=== PATIENT | female | born 1975 | race Caucasian/White ===

== ENCOUNTER → 2017-10-27 13:02 | Outpatient (CLI) | payer OTHER, MEDICAID, SELFPAY ==
[2017-10-27 13:27] LABS: Specimen Label KIT TEST
[2017-10-27 13:59] LABS: Appearance Urine UA CLEAR; Bilirubin Urine UA NEGATIVE (NEGATIVE); Color Urine UA YELLOW; Glucose Urine UA NEGATIVE (Normal); Ketones Urine UA TRACE (NEGATIVE); Leukocyte Esterase Urine UA NEGATIVE (NEGATIVE); Nitrite Urine UA Negative (Negative); Occult Blood Urine UA NEGATIVE (Negative); Protein Urine UA NEGATIVE (Negative); Specific Gravity Urine UA 1.025 (1.000-1.035); Urobilinogen Urine UA 0.2 E.U./dL (0.2); pH Urine UA 6.5 (4.5-8.0)
[2017-10-27 14:08] LABS: Add Manual Diff / Slide Review NO; Basophils Percent Auto 0.5 % (0-2); Eosinophils Percent Auto 1.6 % (2-4); Hemoglobin 12.4 g/dL (12.0-16.0); Mean Corpuscular HGB Conc 34.5 % (30-36); Mean Corpuscular Hemoglobin 30.4 PG (26-34); Mean Corpuscular Volume 88.2 fL (80-100); Monocytes Percent Auto 4.2 % (3-14); Neutrophils Absolute Auto 5000 /uL (3000-5900); Neutrophils Percent Auto 68.7 % (50-75); Platelet Count 206 X10^3/uL (150-400); Red Blood Cell Count 4.09 X10^6/uL (4.0-5.2); Red Cell Distribution Width 13.4 % (11.6-14.8); White Blood Cell Count 7.3 X10^3/uL (4.5-11.0)
[2017-10-27 14:34] LABS: Glucose 89 mg/dL (70-100)
[2017-10-27 14:36] LABS: Hemoglobin A1C% w Est Avg Glu 5.1 % (4.0-6.0)
[2017-10-27 15:50] LABS: Hepatitis B Surface Antigen NEGATIVE s/c (NEGATIVE)
[2017-10-27 16:05] LABS: HIV 1 and 2 Antibody NEGATIVE (NEGATIVE); Hep C Virus Ab w/Reflex Quant NEGATIVE s/c (NEGATIVE)
[2017-10-29 14:02] LABS: HSV 2 IGG AB 2.07 index (< 0.90)
[2017-11-03 12:25] LABS: Rapid Plasma Reagin NON-REACTIVE
== END ==
PROVIDERS: PCP Family Medicine
DX: O09.40 Supervision of pregnancy with grand multiparity, unspecified trimester (principal); Z34.81 Encounter for supervision of other normal pregnancy, first trimester; Z3A.11 11 weeks gestation of pregnancy
CPT/HCPCS: 36415; 80055; 81003; 82947; 83036; 86695; 86696; 86703; 86787; 86803; 86850; 86900; 86901; 87086

== ENCOUNTER 2018-01-10 17:14 | Emergency (ER) | payer OTHER, MEDICAID, SELFPAY ==
[2018-01-10 17:37] VITALS: BP 119/44; PULSE 79; RESP 16; TEMP 36.6; O2SAT 100
--- NOTE | 2018-01-10 18:00 | ED_ITS ---
HPI - Extremity Injury (Lower) <ALEJANDRO Wallis - Last Filed: 01/10/18 21:48> General Chief Complaint: Extremity Injury, Lower Stated Complaint: LT LEG POSSIBLE CLOT Time Seen by Provider: 01/10/18 17:46 Source: patient Mode of arrival: ambulatory Limitations: no limitations History of Present Illness HPI Narrative: 42-year-old healthy female that is a nonsmoker that is currently approximately 20 weeks . She is 8 para 7. She states she has pain to her left calf area. She was sent here by her OBGYN to rule out a blood clot. She denies any chest pain or shortness of breath. No erythema or swelling to the left lower leg. She has had the pain there to the left calf area over the past couple of days. She denies any trauma to the area. She denies having a history of having blood clots. She denies any other concerns Related Data Home Medications Medication Instructions Recorded Confirmed VIT#96/FERROUS FUM/FA 1 tab PO QDAY #0 08/23/12 01/10/18 ( Vitamin) Allergies Allergy/AdvReac Type Severity Reaction Status Date / Time No Known Drug Allergies Allergy Verified 01/10/18 17:47 Review of Systems <ALEJANDRO Wallis - Last Filed: 01/10/18 21:48> Constitutional Denies chills, Denies fever(s), Denies lethargy and Denies weakness Eyes Denies change in vision, Denies eye discharge, Denies irritation and Denies loss of vision ENT Ears, Nose, Mouth, and Throat: Denies change in voice, Denies neck pain and Denies sore throat Cardiovascular Denies chest pain, Denies irregular heart rhythm, Denies lightheadedness, Denies palpitations, Denies dyspnea, Denies dyspnea on exertion and Denies orthopnea Respiratory Denies cough, Denies dyspnea, Denies dyspnea on exertion and Denies wheezing Gastrointestinal Gastrointestinal: Denies abdominal pain, Denies change in bowel habits, Denies diarrhea, Denies nausea and Denies vomiting Genitourinary Denies hematuria, Denies flank pain, Denies urinary incontinence and Denies urinary urgency Musculoskeletal Denies neck pain Comments: Left calf pain Integumentary/Breasts Denies pruritus, Denies erythema, Denies rash and Denies wounds Neurologic Denies confusion, Denies loss of vision and Denies weakness Psychiatric Denies anxiety, Denies confusion, Denies depression, Denies homicidal ideation and Denies suicidal ideation Endocrine Denies palpitations Hematologic/Lymphatic Denies easy bruising Allergic/Immunologic Denies wheezing Exam <ALEJANDRO Wallis - Last Filed: 01/10/18 21:48> Initial Vital Signs Initial Vital Signs: Vital Signs Temperature 97.8 F 01/10/18 17:37 Pulse Rate 79 01/10/18 17:37 Respiratory Rate 16 01/10/18 17:37 Blood Pressure 119/44 L 01/10/18 17:37 Pulse Oximetry 100 01/10/18 17:37 Const General: cooperative and well developed Nutritional Appearance: well nourished Orientation: alert, awake, oriented x3 and not confused HENMT Mouth: oral mucosae normal and moist mucous membranes Eyes Conjunctivae: conjunctivae normal Sclera: sclerae normal Pupils: PERRL EOM: EOM intact bilaterally Resp Effort & Inspection: normal respiratory effort, able to speak in complete sentences, no respiratory distress and no use of accessory muscles Auscultation: clear to auscultation bilaterally, no rales, no rhonchi and no wheezes Cardio Rate: regular rate Rhythm: regular rhythm Heart Sounds: no click, no gallops, no murmurs and no rubs Pulses: normal peripheral pulses GI Inspection: non-distended Palpation: soft, no hepatosplenomegaly, No guarding, No pulsatile mass and No tender Auscultation: normal bowel sounds Skin General: no rashes or lesions noted, No jaundice and No petechiae Neuro General: alert, oriented x3, gait normal and no focal motor deficits Speech: speech normal Extrem Other: Tenderness on palpation to the posterior left calf. No erythema. No increased temperature. No swelling. Homans sign is negative. No signs of trauma. No deformities. No ecchymosis. Distal sensation is intact. Distal range of motion is intact. Distal pulses are intact. <Jimi Young DO - Last Filed: 01/10/18 23:05> Initial Vital Signs Initial Vital Signs: Vital Signs Temperature 97.8 F 01/10/18 17:37 Pulse Rate 79 01/10/18 17:37 Respiratory Rate 16 01/10/18 17:37 Blood Pressure 119/44 L 01/10/18 17:37 Pulse Oximetry 100 01/10/18 17:37 Course <ALEJANDRO Wallis - Last Filed: 01/10/18 21:48> Orders Ordered: ED Orders 01/10/18 18:05 US periph venous low extrem lt Stat Vital Signs - 8 hr 01/10/18 17:37 Temperature 97.8 F Pulse Rate 79 Respiratory Rate 16 Blood Pressure 119/44 L Pulse Oximetry 100 <Jimi Young DO - Last Filed: 01/10/18 23:05> Orders Ordered: ED Orders 01/10/18 18:05 US periph venous low extrem lt Stat Vital Signs - 8 hr 01/10/18 17:37 Temperature 97.8 F Pulse Rate 79 Respiratory Rate 16 Blood Pressure 119/44 L Pulse Oximetry 100 MDM - Extremity Injury (Lower) <ALEJANDRO Wallis - Last Filed: 01/10/18 21:48> Lab Data Urine Dip Bedside Urine Glucose Negative Bedside Urine Bilirubin - Negative Bedside Urine Ketone - Negative Bedside Urine Occult Blood - Negative Bedside Urine Protein - Negative Bedside Urine Urobilinogen - Negative Bedside Urine Nitrite - Negative Bedside Urine Leukocytes - Negative Esterase Imaging Data Venous US: Radiologist's impression: [place] [address] Ultrasound Report Signed Patient: Darleen Almanza JMR#: [id number] : 1975Acct:[id number] Age/Sex: 42 / FDate of Service: 01/10/18 Loc: ED Accession Number: [id number] Procedure: US periph venous low extrem lt Ordering Provider: Aren Fields PROCEDURE: US PERIPH VENOUS LOW EXTREM LT INDICATIONS: CALF PAIN TECHNIQUE: Real-time imaging, as well as color and pulse Doppler interrogation, were performed of the lower extremity deep veins from the inguinal ligament to the popliteal fossa. COMPARISON: None. FINDINGS: The deep veins are normally compressible, and free of intraluminal thrombus. Color and pulse Doppler demonstrate normal phasic intraluminal flow. There is normal augmentation response to distal compression maneuver. IMPRESSION: No deep vein thrombosis of the left lower extremity. Dictated by: Bindu Garcia M.D. on 01/10/2018 at 19:19 Approved by: Bindu Garcia M.D. on 01/10/2018 at 19:19 MDM Narrative Medical decision making narrative: Ultrasound of the left lower extremity was obtained was negative for any blood clots. Urinalysis was obtained was negative for urinary tract infection. heart tones was obtained and was normal at 146. Sinus symptoms presents as a muscle strain to the left calf area. [id number] Tylenol as needed for any discomfort. Gentle range of motion and stretching to the left calf over the next few days. Rest area. Follow up with primary care provider. For any worsening symptoms return to the emergency room. <Jimi Young DO - Last Filed: 01/10/18 23:05> Lab Data Urine Dip Bedside Urine Glucose Negative Bedside Urine Bilirubin - Negative Bedside Urine Ketone - Negative Bedside Urine Occult Blood - Negative Bedside Urine Protein - Negative Bedside Urine Urobilinogen - Negative Bedside Urine Nitrite - Negative Bedside Urine Leukocytes - Negative Esterase Discharge Plan Departure Patient Disposition: Home Clinical Impression: Strain of calf muscle Discharge Date/Time: 01/10/18 19:20 Interventions: ED Discharge Assessment Last Done: 01/10/18 19:20 Instructions: DI for Calf Muscle Strain Activity Restrictions/Additional Instructions: Ultrasound left lower extremity was obtained was negative for any blood clot. Urinalysis is negative for urinary tract infection. heart tones was normal at 146. Signs and symptoms presents as a strain into the muscles of the calf area. Use [id number] Tylenol as needed for any discomfort. Rest area. Gentle range of motion and stretching to the calf area to help keep muscles loose. For any worsening symptoms return to the emergency room. Follow up with primary care provider. Prescriptions: No Action VIT#96/FERROUS FUM/FA ( Vitamin) 1 tab PO QDAY Qty: 0 RF: 0 Referrals: Darius Guaman MD [Primary Care Provider] - <Jimi Young, - Last Filed: 01/10/18 23:05> Cosign ED Attending Cosignature Attestation: I was immediately available in the department for consultation. Documentation has been reviewed. I agree with assessment and plan.
--- NOTE | 2018-01-10 18:05 | DI.US.S_ITS ---
PROCEDURE: US PERIPH VENOUS LOW EXTREM LT INDICATIONS: CALF PAIN TECHNIQUE: Real-time imaging, as well as color and pulse Doppler interrogation, were performed of the lower extremity deep veins from the inguinal ligament to the popliteal fossa. COMPARISON: None. FINDINGS: The deep veins are normally compressible, and free of intraluminal thrombus. Color and pulse Doppler demonstrate normal phasic intraluminal flow. There is normal augmentation response to distal compression maneuver. IMPRESSION: No deep vein thrombosis of the left lower extremity. Dictated by: Bindu Garcia M.D. on 01/10/2018 at 19:19 Approved by: Bindu Garcia M.D. on 01/10/2018 at 19:19
== END 2018-01-10 19:20 | disposition home or self-care (01) ==
PROVIDERS: Emergency Provider Nurse Practitioner Family; Family Provider Family Medicine; PCP Family Medicine; Referring Provider Obstetrics & Gynecology
DX: S86.812A Strain of other muscle(s) and tendon(s) at lower leg level, left leg, initial encounter (principal)
CPT/HCPCS: 81003; 93971; 99282; 99283

== ENCOUNTER → 2018-01-27 07:49 | Outpatient (CLI) | payer OTHER, MEDICAID, SELFPAY ==
[2018-01-27 10:20] LABS: Hematocrit 35.9 % (36-46)
[2018-01-27 10:54] LABS: GTT (PREG) 1 Hour PP 50gm Dose 78 mg/dL (76-139)
== END ==
PROVIDERS: Family Provider Family Medicine; PCP Family Medicine
DX: Z34.82 Encounter for supervision of other normal pregnancy, second trimester (principal); Z3A.25 25 weeks gestation of pregnancy
CPT/HCPCS: 36415; 82950; 85014; 85018

== ENCOUNTER → 2018-04-06 12:05 | Outpatient (CLI) | payer OTHER, MEDICAID, SELFPAY ==
[2018-04-07 19:16] LABS: Strep Grp B PCR NEG for Grp B Strep
== END ==
PROVIDERS: Family Provider Family Medicine; PCP Family Medicine
DX: Z34.83 Encounter for supervision of other normal pregnancy, third trimester (principal)
CPT/HCPCS: 87653

== ENCOUNTER 2018-05-04 07:00 | Inpatient (IN) | payer OTHER, MEDICAID, SELFPAY ==
[2018-05-04] MEDS: LACTATED RINGERS 1,000 ML 100 ML IV (07:45)
[2018-05-04] MEDS: OXYTOCIN PREMIX 30 UNIT/500 ML PLAST..BAG IV (08:05)
[2018-05-04 08:11] LABS: Add Manual Diff / Slide Review NO; Basophils Absolute Auto 0 /uL (0-100); Basophils Percent Auto 0.6 % (0-2); Eosinophils Absolute Auto 200 /uL (0-450); Eosinophils Percent Auto 1.9 % (2-4); Hematocrit 36.9 % (36-46); Hemoglobin 12.5 g/dL (12.0-16.0); Lymphocytes Absolute Auto 2000 /uL (1100-4500); Lymphocytes Percent Auto 24.1 % (25-40); Mean Corpuscular HGB Conc 33.9 % (30-36); Mean Corpuscular Hemoglobin 30.8 PG (26-34); Monocytes Absolute Auto 500 /uL (0-900); Monocytes Percent Auto 5.5 % (3-14); Neutrophils Absolute Auto 5600 /uL (1500-7000); Neutrophils Percent Auto 67.9 % (50-75); Platelet Count 147 X10^3/uL (150-400); Red Blood Cell Count 4.06 X10^6/uL (4.0-5.2); Red Cell Distribution Width 13.4 % (11.6-14.8); White Blood Cell Count 8.2 X10^3/uL (4.5-11.0)
--- NOTE | 2018-05-04 09:09 | PM.OBHP.1 ---
OB HPI Date/Time Date of admission: 05/04/18 Date Patient Seen: 05/04/18 Time Patient Seen: 09:10 History of Present Condition Chief complaint: OBS : 7 Para: 5 Estimated Date of Delivery: 05/01/18 Narrative: Darleen Almanza is a 42 year old female seven para five who is at term with an uneventful . Patient is admitted for elective induction at 40 weeks three days. The patient's course 10. Patient is admitted for extreme maternal discomfort Indications Indication for induction OB: post dates History of Present care: good care and pounds weight gain (32 lb) Dating criteria: LMP confirmed by 1st trimester US Ultrasounds: normal 1st trimester US, normal mid trimester US and other (3rd trimester) Abnormal ultrasound findings: None Obstetrical complications: none Medical complications: none Preadmission Labs Blood type: B (+) positive -: Antibody screen: negative, Cystic fibrosis screen: unknown, GBS status: negative, HBsAG: negative, HIV: negative, HSV 1: negative, HSV 2: negative and RPR/VDLR: negative -: Chlamydia screen: detected (Negative) and Gonorrhea screen: detected (Negative) -: Rubella: immune and Varicella: immune HCT: 35.9 HCAB: negative PAP: Normal Sequential screen: Normal 1 hr GTT: 78 Prior (ies) History: 1 child with Chiari malformation Evaluation Evaluation Variability: Average (6-10) monitor accelerations: Present monitor decelerations: Absent Category of Tracing: I Cervical dilation (cm): 4 Cervical effacement (%): 90 station: 0 Laboratory results: Laboratory Tests 05/04/18 07:45 WBC 8.2 RBC 4.06 Hgb 12.5 Hct 36.9 MCV 91.0 MCH 30.8 MCHC 33.9 RDW 13.4 Plt Count 147 L Neut % (Auto) 67.9 Lymph % (Auto) 24.1 L Barnes % (Auto) 5.5 Eos % (Auto) 1.9 L Baso % (Auto) 0.6 Neut # (Auto) 5600 Lymph # (Auto) 2000 Barnes # (Auto) 500 Eos # (Auto) 200 Baso # (Auto) 0 PFSH Surgical History Status post dilation and curettage (Resolved 06/30/15) Social History Smoking Status: Never smoker Social History Smoking Status: Never smoker Meds Home Medications Medication Instructions Recorded Confirmed Type VIT#96/FERROUS FUM/FA 1 tab PO QDAY #0 08/23/12 01/10/18 History ( Vitamin) Allergies Allergy/AdvReac Type Severity Reaction Status Date / Time No Known Drug Allergies Allergy Verified 01/10/18 17:47 Review of Systems Review of Systems All systems reviewed & are unremarkable except as noted in HPI and below Exam Const General: cooperative and healthy appearing HENMT Head: normal to inspection Ears: hearing grossly normal bilaterally Nose: external nose normal Face and sinus: normal facial exam Mouth: oral mucosae normal, lip normal, tongue normal and moist mucous membranes Teeth and gingiva: dentition normal Throat: posterior oropharynx normal Eyes General: appearance normal, both eyes and all related structures Neck Neck: normal visual inspection and full ROM Chest Chest: normal inspection of the chest and normal palpation of entire chest wall Breast inspection: normal inspection of the breasts and normal inspection of the axillae Breast Palpation: normal palpation of the breasts and normal palpation of the axillae Resp Effort & Inspection: normal respiratory effort Auscultation: clear to auscultation bilaterally Cardio Palpation: normal PMI Rate: regular rate Rhythm: regular rhythm Heart Sounds: S1 normal and S2 normal GI Inspection: normal to inspection Palpation: soft and no hepatosplenomegaly Percussion: normal to percussion Auscultation: normal bowel sounds Uterus Location (Fundal Height): 38 Presentation: vertex Estimated Weight (lbs): 8 Amniotic Fluid: clear Back/Spine/Pelvis Thoracic/Lumbar Spine: thoracic and lumbar spine normal to inspection Skin General: no rashes or lesions noted Neuro General: alert, oriented x3, tone normal and moves all extremities Cognition: normal cognition Speech: speech normal Gait: normal gait Motor: muscle tone normal throughout Sensory Exam: no sensory deficits noted Extrem General: normal to inspection and normal exam except as noted Psych Appearance: grossly normal and well kempt Mental Status: mental status grossly normal Speech and Movement: speech and movement normal Objective Labs Result Diagrams: 05/04/18 07:45 Labs: Laboratory Results - last 24 hr 05/04/18 07:45 WBC 8.2 RBC 4.06 Hgb 12.5 Hct 36.9 MCV 91.0 MCH 30.8 MCHC 33.9 RDW 13.4 Plt Count 147 L Neut % (Auto) 67.9 Lymph % (Auto) 24.1 L Barnes % (Auto) 5.5 Eos % (Auto) 1.9 L Baso % (Auto) 0.6 Neut # (Auto) 5600 Lymph # (Auto) 2000 Barnes # (Auto) 500 Eos # (Auto) 200 Baso # (Auto) 0
--- NOTE | 2018-05-04 11:14 | PM.OBPNLAB ---
Date/Time Date Patient Seen: 05/04/18 Time Patient Seen: 11:14 Pain Control Pain control: tolerating well Comments: Epidural Pelvic Exam Dilation (cm): 9 Effacement (%): 100 station: +2 Contractions Contractions on admission: regular Monitor mode: External Pitocin rate (mU/min): 3 Contraction frequency (min): 3 Contraction pattern: Regular Contraction phase: Resting Contraction intensity: Strong/Firm Status status: Category ll Heart Rate Baseline: 130 Monitor Accelerations: Present Monitor Decelerations: Variable Assessment and Plan Assessment: active labor Plan: continuous present management
--- NOTE | 2018-05-04 11:38 | P.PCNOB_ITS ---
Delivery date: 05/04/18 Intrapartal events: None Induction method: per pitocin protocol Delivery augmentation: rupture of membranes Delivery monitor: external FHT and external uterine Route of delivery: Episiotomy description: None L&D Laceration Description: None Estimated blood loss (mL): 300 Anesthesia type: Epidural Complications: None Narrative: Patient is a 42-year-old eight para six Plan for aftercare: Patient is a 32-year-old eight para six who was admitted for induction of labor. Pitocin was begun and membranes ruptured. Epidural was placed. Patient made rapid progress to complete and delivered spontaneously a live born male with scores of nine at 1 min nine at 5 min in good condition. There was no episiotomy. There was no tear. There w ere no cervical or vaginal lacerations. The estimated blood loss was 300.
[2018-05-04] MEDS: METHYLERGONOVINE 0.2 MG TABLET PO ×2 (13:38→21:13)
[2018-05-04 17:46] VITALS: BP 124/80
[2018-05-04 21:13] VITALS: TEMP 37.1
[2018-05-04] MEDS: IBUPROFEN 600 MG TABLET PO (21:13)
[2018-05-05] MEDS: IBUPROFEN 600 MG TABLET PO (06:02)
[2018-05-05] MEDS: METHYLERGONOVINE 0.2 MG TABLET PO (06:02)
[2018-05-05 06:53] LABS: Hemoglobin 13.5 g/dL (12.0-16.0)
--- NOTE | 2018-05-05 10:29 | P.DS_ITS ---
Discharge Providers Date of admission: 05/04/18 07:00 Discharge Date: 05/05/18 Primary care physician: Darius Guaman MD Consults: 05/04/18 12:54 Consult to Overnight Stocker Routine Comment: Discharge provider: Chace Coronado MD Summary Date Patient Seen: 05/05/18 Time Patient Seen: 10:25 Procedures: Spontaneous vaginal delivery Hospital Course: Patient is a 42-year-old eight para six who was admitted because of a very favorable cervix and maternal discomfort. Pitocin was begun and the patient had a rapid labor and spontaneous vaginal delivery of a live-born male infant with scores of nine at 1 min and nine at 5 min in good condition. There were no cervical vaginal or perineal tears. Estimated blood loss was 200 cc. Post delivery the patient did well. She remained afebrile with stable vital signs and was progressively elevated ambulated. She was discharged home for follow-up in four week Peripartum Data Infant Delivery Method: Natural Vaginal Laceration description: None complications: none Status at Discharge Cognitive/behavioral status at discharge: oriented Functional status at discharge: independent ambulation Overall status at discharge: patient is back to baseline Time Spent with Patient Total time spent providing and/or coordinating discharge services: Objective Labs Result Diagrams: 05/05/18 06:30 Labs: Laboratory Results - last 24 hr 05/05/18 06:30 Hgb 13.5 Hct 40.0 Exam Vital Signs (past 8 hours): Fundus U minus two Lochia scant Perineum looks fine Discharge Plan Discharge Plan Patient Disposition: Home Discharge Med Rec/Prescriptions Prescriptions: New Dermoplast (with menthol) 20-0.5 % Aerosol 1 spray topical Q1HR PRN (Reason: perineal pain) Qty: 1 RF: 0 oxycodone-acetaminophen 5-325 mg Tablet 1 tab PO Q4HR Qty: 20 RF: 0 ibuprofen 600 mg Tablet 600 mg PO Q6HR PRN (Reason: Pain, Mild (1-3)) Qty: 20 RF: 0 docusate sodium 250 mg Capsule 250 mg PO DAILY Qty: 20 RF: 0 Pic-I-Zvdlcy Cream 1 applic topical PRN PRN (Reason: Tenderness) Qty: 1 RF: 0 Prenatabs Rx 29 mg iron- 1 mg Tablet 1 tab PO DAILY Qty: 60 RF: 0 Continued VIT#96/FERROUS FUM/FA ( Vitamin) 1 tab PO QDAY Qty: 0 RF: 0 Follow up/Referrals: Darius Guaman MD [Primary Care Provider] - Chace Coronado MD [Physician] - Provider Discharge Instructions Diet: Diet as Tolerated Activity: Up ad leslie Skin/Wound/Dressing Care Report to your healthcare provider any signs of infection, such as:: chills, fever, increased pain, unusual drainage and unusual redness Discharge Data Primary Care Provider: Darius Guaman Attending Provider: Chace Coronado Admit Date/Time: 05/04/18 07:00
[2018-05-05 12:10] VITALS: BP 120/70; PULSE 81; RESP 16; TEMP 36.8
== END 2018-05-05 12:45 | disposition home or self-care (01) | DRG 560 ==
PROVIDERS: Family Provider Family Medicine; PCP Family Medicine
DX: O48.0 Post-term pregnancy (principal); O26.813 Pregnancy related exhaustion and fatigue, third trimester; Z3A.40 40 weeks gestation of pregnancy; Z37.0 Single live birth
CPT/HCPCS: 01967; 36415; 59050; 59409; 85014; 85018; 85025; 86850; 86900; 86901; G0379; J2590

== ENCOUNTER → 2018-06-22 09:05 | Outpatient (CLI) | payer OTHER, MEDICAID, SELFPAY ==
[2018-06-22 09:26] LABS: Appearance Urine UA SL CLOUDY; Bilirubin Urine UA NEGATIVE (NEGATIVE); Color Urine UA YELLOW; Glucose Urine UA NEGATIVE (Negative); Ketones Urine UA NEGATIVE (NEGATIVE); Leukocyte Esterase Urine UA 3+ (NEGATIVE); Nitrite Urine UA NEGATIVE (Negative); Occult Blood Urine UA TRACE-LYSED (Negative); Protein Urine UA NEGATIVE (Negative); Specific Gravity Urine UA 1.015 (1.000-1.035); Urobilinogen Urine UA 0.2 E.U./dL (0.2)
[2018-06-22 10:18] LABS: Bacteria Urine Moderate (10-30); Culture Indicated Urine Specimen Cultured; RBC Urine 1-5/HPF (0-5/HPF); Squamous Epithelial Cell Urine 1-5 /HPF (0-5/HPF); WBC Urine 10-30/HPF (0-5/HPF)
== END ==
PROVIDERS: PCP Family Medicine; Visit Provider Obstetrics & Gynecology
DX: R30.0 Dysuria (principal)
CPT/HCPCS: 81001; 87086

== ENCOUNTER → 2018-07-31 17:02 | Outpatient (CLI) | payer OTHER, MEDICAID, SELFPAY ==
[2018-07-31 17:21] LABS: Appearance Urine UA CLOUDY; Bilirubin Urine UA NEGATIVE (NEGATIVE); Color Urine UA YELLOW; Glucose Urine UA NEGATIVE (Negative); Ketones Urine UA NEGATIVE (NEGATIVE); Leukocyte Esterase Urine UA 3+ (NEGATIVE); Nitrite Urine UA NEGATIVE (Negative); Occult Blood Urine UA TRACE-LYSED (Negative); Protein Urine UA NEGATIVE (Negative); Urobilinogen Urine UA 0.2 E.U./dL (0.2); pH Urine UA 5.5 (4.5-8.0)
[2018-07-31 17:36] LABS: Amorphous Sediment Urine 1+; Bacteria Urine Few (2-10); Culture Indicated Urine Specimen Cultured; Mucus Urine 1+ (Negative); RBC Urine 0-1/HPF (0-5/HPF); Squamous Epithelial Cell Urine 1-5 /HPF (0-5/HPF); WBC Urine >100/HPF (0-5/HPF)
== END ==
PROVIDERS: PCP Family Medicine
DX: R30.0 Dysuria (principal); R35.0 Frequency of micturition
CPT/HCPCS: 81001; 87077; 87086; 87186

== ENCOUNTER → 2018-10-31 11:47 | Outpatient (CLI) | payer OTHER, MEDICAID, SELFPAY ==
--- NOTE | 2018-10-31 | DI.US.S_ITS ---
PROCEDURE: US THYROID INDICATIONS: THYROIDITIS TECHNIQUE: Real-time scanning was performed of the thyroid gland, with image documentation. COMPARISON: None. FINDINGS: Right: Thyroid lobe measures 4.5 x 1.9 x 1.8 cm, and is homogeneous in echotexture. Left: Thyroid lobe measures 4.4 x 2.0 x 1.6 cm, and is homogenous in echotexture. Isthmus: 6 mm thick. Nodule number: 1 Location: Left aspect of the isthmus Size: 1.8 x 0.5 x 0.9 cm. Composition: Solid Echogenicity: Hypoechoic Shape: wider than tall. Margins: Smooth Echogenic foci: None Total points: 4 ACR TI-RADS category: Moderately suspicious Moderately suspicious. Multiple nodules posterior to the right lobe of the thyroid presumably enlarged parathyroid measuring 2.7 x 0.8 x 1.0 cm (superior) and 1.0 x 0.5 x 0.6 cm (inferior) IMPRESSION: Solitary nodule in the left aspect of the isthmus. Recommend further assessment with ultrasound guided FNA. Enlarged multiple right parathyroid glands as above. Recommend clinical/laboratory correlation. Diffusely enlarged, heterogeneous thyroid ACR TI-RADS definitions and recommendations: TI-RADS 1 (benign): 0 points. FNA not needed. TI-RADS 2 (not suspicious): 2 points. FNA not needed. TI-RADS 3 (mildly suspicious): 3 points. * FNA if 2.5 cm or larger, follow up if 1.5 cm or larger (at 1, 3, and 5 years). TI-RADS 4 (moderately suspicious): 4-6 points. * FNA if 1.5 cm or larger, follow up if 1 cm or larger (at 1, 2, 3, and 5 years). TI-RADS 5 (highly suspicious): 7 points or more. * FNA if 1 cm or larger, follow up if 0.5 cm or larger (every year for 5 years). Dictated by: Ab Marinelli M.D. on 10/31/2018 at 15:36 Approved by: Ab Marinelli M.D. on 10/31/2018 at 15:44
== END ==
PROVIDERS: PCP Family Medicine; Visit Provider Family Medicine
DX: E06.9 Thyroiditis, unspecified (principal); E04.2 Nontoxic multinodular goiter
CPT/HCPCS: 76536

== ENCOUNTER → 2018-11-23 09:34 | Outpatient (CLI) | payer OTHER, MEDICAID, SELFPAY ==
--- NOTE | 2018-11-23 | DI.US.S_ITS ---
PROCEDURE: US FINE NEEDLE ASPIRATION INDICATIONS: ISTHMUS NODULE TECHNIQUE: The indications, alternatives, benefits, risks, and complications of the procedure were explained to the patient. Written informed consent was obtained and placed in the chart. The thyroid region was examined sonographically and a site was chosen for ultrasound guided percutaneous sampling. The skin was prepared and draped in the usual fashion, and anesthetized with 1% lidocaine infiltrated from the skin down to the thyroid gland. Multiple passes were then performed, with contents emptied into an appropriate pathology specimen container. A bandage was applied to the area of access at completion of the study. COMPARISON: None. FINDINGS: Location(s) of lesion(s) sampled: Isthmus Saxis: 25 gauge hypodermic needles. Number of passes: 7 Medications: 1% lidocaine for local anaesthesia. Complications: None. IMPRESSION: Successful ultrasound-guided thyroid nodule fine needle aspiration, with cytology results pending. Please see chart below for management recommendations based on cytology results. Kirby System ReportingRecommendationsNon-diagnostic* Repeat US-guided FNA, with on-site cytology evaluation if possible. * Repeated non-diagnostic nodules without high suspicion US features: close observation vs surgical consult. * Consider surgery if nodule has high suspicion US features, grows >20% in 2 dimensions on followup, or patient has clinical risk factors for malignancy. Benign* If nodule has high suspicion US features: repeat US and FNA within 12 months. * If nodule has low to intermediate suspicion US features: repeat US at 12-24 months. If nodule grows (20% increase in at least 2 dimensions, with minimal increase of 2 mm or >50% change in volume), or development of new suspicious US features, then repeat FNA or continue followup. * If nodule has very low suspicion US features: followup US at >24 months. Atypia of undetermined significance, follicular lesion of undetermined significanceRepeat FNA, molecular testing, followup US, or surgical consult.Follicular neoplasm, suspicious for follicular neoplasmSurgical consult; also consider molecular testing. Suspicious for malignancySurgical consult.MalignantSurgical consult. Dictated by: Brooklyn Massey M.D. on 11/23/2018 at 14:55 Approved by: Brooklyn Massey M.D. on 11/23/2018 at 14:55
--- NOTE | 2018-11-23 | PATH_ITS ---
Note [facility] Accession Number: [id number] TESTS RESULT FLAG UNITS REF RANGE LAB Clinician Provided Cytology Information No. of containers..01 ThinPrep Vial No. of containers..10 Previously Prepared Cytology Slide LEFT THYROID ISTHMUS NODULE DIAGNOSIS: 02 LEFT THYROID ISTHMUS NODULE NEGATIVE FOR MALIGNANT CELLS. BETHESDA CATEGORY II - BENIGN. LYMPHOCYTES AND HURTHLE CELLS SUGGESTIVE OF JESÚS'S THYROIDITIS IN THE APPROPRIATE CLINICAL SETTING. Pathologist ICD10: 02 E06.3 01 LYMPHOCYTIC THYROIDITIS 02 Conner Almanza MD, PhD, Pathologist NPI- [id number] John Somers, Chief Drafter ([facility]) 01 30 CC, COLORLESS, CLEAR RECEIVED: 5 ALCOHOL FIXED AND 5 QUICK STAINED SLIDES WITH 1 RNA VIAL FOR FURTER TESTING. /VDU 11/24/2018 0646 Local FLAG LEGEND: L-Low Normal,H-High Normal,LL-Alert Low,HH-Alert High <-Panic Low,>-Panic High,A-Abnormal,AA-Critical Abnormal Performed at: 01 =Z [facility] [address], [place] [address] Ashutosh Hanson MD, 02 LMT [facility] [address] [place] [phone] Raquel Mascorro MD, Performed at: 01 [facility] [address], [place], [place] [id number] MD Ashutosh Hanson MD Phone: [phone]
== END ==
PROVIDERS: PCP Family Medicine; Visit Provider Family Medicine
DX: E04.1 Nontoxic single thyroid nodule (principal)
CPT/HCPCS: 10005

== ENCOUNTER → 2019-10-15 14:44 | Outpatient (CLI) | payer OTHER, MEDICAID, SELFPAY ==
[2019-10-16 20:04] LABS: COVID19 Sendout Not Detected (Not Detect)
== END ==
PROVIDERS: PCP Family Medicine; Visit Provider Physician Assistant
DX: Z11.59 Encounter for screening for other viral diseases (principal)
CPT/HCPCS: 87635

== ENCOUNTER 2019-10-18 12:17 | Day surgery (SDC) | payer OTHER, MEDICAID, SELFPAY ==
[2019-10-12 14:02] VITALS: BMI 22.1
[2019-10-18] VITALS (13 sets, daily range): BP systolic 93–152; BP diastolic 58–102; PULSE 54–79; RESP 12–20; TEMP 36.1–36.8; O2SAT 100; BMI 21.2
[2019-10-18] MEDS: LACTATED RINGERS 1,000 ML 100 ML IV ×2 (13:03→17:44)
[2019-10-18] MEDS: ACETAMINOPHEN 325 MG TABLET 975 MG PO (13:03)
--- NOTE | 2019-10-18 13:20 | SUR.OPER ---
Lithotomy on padded OR bed, head on pillow, arms secured on padded arm boards at <90 degrees abduction. Legs secured in padded yellow fins stirrups.
--- NOTE | 2019-10-18 13:25 | PM.PREOP ---
Pre-operative Note COVID-19 COVID-19 status: Negative Result date/Date tested (Pos, Neg/Pending): 10/15/19 Interval Note History & Physical reviewed/Exam performed by Physician: Yes Changes to H&P: No
[2019-10-18] MEDS: CEFAZOLIN 2 GM/100 ML FROZ.PIGGY IV (13:45)
[2019-10-18] MEDS: BUPIVACAINE 0.5% W/ EPI (PF) 30 ML VIAL INJ (14:09)
--- NOTE | 2019-10-18 15:44 | P.OP_ITS ---
Operative Date/Time/Diagnoses Date of procedure: 10/18/19 Time of procedure: 15:44 Pre-op diagnosis: Prolapse, sterilization Post-op diagnosis: same Procedure & Clinicians Procedure: Laparoscopic bilateral tubal ligation with anterior colporrhaphy, TVT exact retropubic suburethral sling, sacrospinous ligament fixation bilateral Same procedure as scheduled: Yes Indications: Prolapse and wish for sterilization Surgeon: Marla Bill Ui Application Developer: Gracie Salmeron Anesthesia Type: General Operative Notes Findings: Normal intra-abdominal contents on laparoscopy with normal tubes, ovaries, uterus. Prominent cystocele with hypermobile urethra and uterus prolapsed to 1 cm from the hymen Closure Type: primary Specimen(s): none sent Applied: catheter (Kwan) and other (Vaginal packing) Estimated Blood Loss (mL): 100 Blood products transfused: none Procedure in detail: Patient was brought to the operating room where she was placed in yellowfin stirrups and prepped and draped in the usual sterile fashion. A 20 point check system was reviewed prior to the beginning of the case. Pulsatile stockings were in place and functional throughout the case. Warming was in place. 2 g of Ancef were in prior to beginning of the case. A Kwan catheter was placed. A dilute solution of 1% lidocaine with epinephrine was injected over this cystocele. An incision was made over the cystocele and the incision dissected laterally. A pursestring suture was used to decrease the caliber of the cystocele with 2-0 Vicryl suture. Plicating sutures were made over the cystocele. A small amount of the vaginal excessive tissue was removed with scissors. The incision was closed with 2-0 Vicryl suture. 15 mL of half percent Marcaine with epinephrine were diluted with 70 mL of saline 10 cc was injected around the mid urethra. An incision was made over the mid urethra with a scalpel. The incision was extended laterally. A Kwan catheter was placed with a catheter guide in place. The suprapubic exit sites were marked with a marking pen. The needles attached to the sling were placed from the bottom up and left in place. The catheter was removed and 300 mL of saline were placed in the bladder and cystoscopy was performed. A 70?? scope followed by a 12?? scope were used to look at the bladder and the urethra. The trocar for the sling was found to have entered the bladder on the left side and was replaced. There is no damage to the bladder or urethra. The graft was brought up loosely under the mid urethra. With sharp pressure against the bladder there was some leakage of urine. The plastic sheath was removed. The graft was cut under the skin of the suprapubic sites. Skin was closed with Steri-Strips. The vaginal incision was closed with 2-0 vicryl suture. The area of the posterior wall of the vagina was injected with a dilute solution of 1% lidocaine with epinephrine. An incision was made with the scalpel. The dissection was undertaken laterally. Prolene suture with the Capio passer was placed through the uterosacral ligament on the right side and sutured to the underside of the cervix. A Prolene suture was placed on the left uterosacral ligament and sutured to the underside of the vaginal wall on the left. A finger was placed in the rectum to be sure there were no sutures placed through the rectal mucosa. The uterosacral sutures were tightened down and the vaginal incision was closed with 2-0 Vicryl suture. Vaginal packing was placed in the vagina and the Kwan left in place. Counts of instruments and sponges were correct. The patient went to recovery room in good condition. Complications: other (Trocar for TVT exact went through the bladder on the left was replaced) Post-operative Condition: stable Disposition: Acute Care Plan for aftercare: Will leave vaginal packing in place for 4-6 hours, Kwan catheter for 1 week, home when patient feels able.
[2019-10-18] MEDS: LACTATED RINGERS 1,000 ML 42 ML IV (15:46)
--- NOTE | 2019-10-18 15:49 | SUR.PHASEI ---
Received to PACU at 1531. Oral airway in place. No further airway assistance required. Report from circulating RN and Dr Ho. 1535 - Oral airway removed without difficulty.
--- NOTE | 2019-10-18 16:24 | SUR.PHASEII ---
Report called to YO Meek. Pt transferred to 218 in stable condition. Bedside handoff with YO Meek. Pt's called and notified of transfer.
[2019-10-18] MEDS: KETOROLAC 30 MG/ML VIAL IV (17:43)
--- NOTE | 2019-10-18 20:25 | P.DS_ITS ---
History of Present Illness History of Present Illness Date Patient Seen: 10/18/19 Time Patient Seen: 20:25 Date of Onset of Symptoms: 10/18/19 Chief complaint: *OPB* Narrative: Patient with prolapse of bladder and uterus with undesired fertility who underwent a laparoscopic bilateral tubal ligation anterior colporrhaphy, TVT exact retropubic suburethral sling, sacrospinous ligament fixation. Discharge Providers Provider Discharge Date: 10/18/19 Primary care physician: Darius Guaman MD Discharge provider: Marla Bill MD Summary Hospital Course Discharge Diagnosis: Sterilization, cystocele and uterine prolapse Hospital Course: Patient underwent a laparoscopic bilateral tubal ligation, anterior colporrhaphy, TVT exact retropubic suburethral sling with sacrospinous ligament fixation. Patient had a small renny in the bladder so will be sent home with a Isaac catheter for 1 week. Patient's packing was removed. She feels her pain is under good control with Toradol. She is not nauseated. She feels she is able to ambulate. Exam Vital Signs (past 8 hours): - 10/18/19 12:45 10/18/19 15:31 10/18/19 15:36 Temperature 97.4 F L 97.3 F L Pulse Rate 70 73 57 L Respiratory Rate 14 20 12 Blood Pressure 121/80 139/87 116/76 Pulse Oximetry 100 100 100 10/18/19 15:41 10/18/19 15:46 10/18/19 15:52 Temperature Pulse Rate 60 57 L 57 L Respiratory Rate 12 12 12 Blood Pressure 112/75 114/74 104/70 Pulse Oximetry 100 100 100 10/18/19 16:00 10/18/19 16:11 10/18/19 16:20 Temperature 97.2 F L 97.1 F L Pulse Rate 60 54 L 58 L Respiratory Rate 12 14 16 Blood Pressure 94/60 93/58 L 108/67 Pulse Oximetry 100 100 100 10/18/19 16:50 10/18/19 17:20 10/18/19 18:20 Temperature 97.7 F 98.3 F 97.0 F L Pulse Rate 55 L 56 L 60 Respiratory Rate 16 18 16 Blood Pressure 113/76 152/102 H 110/70 Pulse Oximetry 100 100 100 Oxygen Delivery Method Room Air Narrative Exam Narrative: Abdomen is soft, nontender. Suprapubic dressings are dry. Vaginal packing was removed and had minimal blood on it. Urine is clear. Extremities nontender. Discharge Assessment & Plan Assessment and Plan Assessment: Wish for sterilization, prolapse with cystocele and uterine prolapse status post laparoscopic tubal ligation with anterior colporrhaphy, TVT exact retropubic s uburethral sling and sacrospinous ligament fixation doing well. Patient with renny in the bladder who will require Isaac catheter for 1 week Plan of Treatment: Discharged home with Isaac catheter care and leg bag. Follow-up in 1 week. Discharge Plan Discharge Plan Patient Disposition: Home Discharge comment: pt will take aleve, tylenol, and has old pain meds if needed Discharge Med Rec/Prescriptions Prescriptions: Continued levothyroxine 50 mcg capsule 50 mcg PO DAILY RF: 0 Discontinued norethindrone (contraceptive) [Ortho Micronor] 0.35 mg tablet 0.35 mg PO DAILY Qty: 84 RF: 3 Follow up/Referrals: Marla Bill MD [Physician] - 1 Week (remove isaac and check post void residual) Discharge Orders: Discharge (Order); Ordered 10/18/19 Ordered By: Marla Bill Provider Discharge Instructions Diet: Regular Activity: nothing in vagina,lifting over 20 pounds, or getting up and down from floor for 6 weeks Catheter comment: teach isaac and leg bag care Skin/Wound/Dressing Care Report to your healthcare provider any signs of infection, such as:: chills, fever, increased pain and unusual drainage Dressing: may remove dressings tomorrow Discharge Data Primary Care Provider: Darius Guaman Attending Provider: Marla Bill
[2019-10-18] MEDS: IBUPROFEN 600 MG TABLET PO (22:26)
--- NOTE | 2019-10-18 23:03 | PC.NURSE ---
Pt discharged a few hours after admission to unit. Education provided on isaac home care and leg bag use. Pt verbalized understanding of all instructions. IV removed pt escorted off unit in stable condition with all personal belongings.
== END 2019-10-18 22:30 | disposition home or self-care (01) ==
LOC: OR 14:02 → AC 17:06
PROVIDERS: PCP Family Medicine; Referring Provider Specialist; Visit Provider Specialist
PROC: (CPT 57288; principal; 2019-10-18 13:30)
PROC: (CPT 58671; 2019-10-18 13:30)
DX: N36.41 Hypermobility of urethra (principal); N81.2 Incomplete uterovaginal prolapse; Z30.2 Encounter for sterilization; G47.30 Sleep apnea, unspecified
CPT/HCPCS: 57288; 58661; 57240; 57282; C1771; J0690; J1100; J1885; J2250; J2405; J2704; J3010

== ENCOUNTER → 2019-10-25 10:21 | Outpatient (CLI) | payer OTHER, MEDICAID, SELFPAY ==
[2019-10-18 18:01] VITALS: BMI 21.2
== END ==
PROVIDERS: PCP Family Medicine; Visit Provider Specialist
DX: R35.0 Frequency of micturition (principal)
CPT/HCPCS: 87077; 87086; 87186

== ENCOUNTER → 2020-01-02 17:35 | Outpatient (CLI) | payer OTHER, MEDICAID, SELFPAY ==
[2019-10-18 18:01] VITALS: BMI 21.2
--- NOTE | 2020-01-02 | DI.MG.S_ITS ---
BILATERAL DIGITAL SCREENING MAMMOGRAM 3D/2D WITH CAD: 01/02/2020 CLINICAL: Routine screening. Family history of breast cancer. Comparison is made to exams dated: 01/22/2011 mammogram, 01/20/2010 mammogram, and 01/13/2009 mammogram - [facility]. The tissue of both breasts is heterogeneously dense. This may lower the sensitivity of mammography. Current study was also evaluated with a Computer Aided Detection (CAD) system. There are grouped coarse calcifications in the right breast at 11 o'clock middle depth. These are more prominent and increased in number. No other significant masses, calcifications, or other findings are seen in either breast. IMPRESSION: INCOMPLETE: NEEDS ADDITIONAL IMAGING EVALUATION The grouped coarse calcifications in the right breast are indeterminate. Mediolateral, spot magnification, and additional views are recommended. This exam was interpreted at Station ID: [id number]. NOTE: For mammograms, a report in lay terms will be sent to the patient. Approximately 15% of breast malignancies will not be visualized mammographically. In the management of a palpable breast mass, a negative mammogram must not discourage biopsy of a clinically suspicious lesion. Electronically Signed By: Derek He M.D. aty/:01/03/2020 07:43:38 letter sent: Additional Imaging Needed ACR BI-RADS Category 0: Incomplete [id number]
== END ==
PROVIDERS: PCP Family Medicine; Referring Provider Family Medicine; Visit Provider Family Medicine
DX: Z12.31 Encounter for screening mammogram for malignant neoplasm of breast (principal); Z80.3 Family history of malignant neoplasm of breast
CPT/HCPCS: 77063; 77067

== ENCOUNTER → 2020-01-28 13:27 | Outpatient (CLI) | payer OTHER, MEDICAID, SELFPAY ==
[2019-10-18 18:01] VITALS: BMI 21.2
--- NOTE | 2020-01-28 | DI.MG.S_ITS ---
UNILATERAL RIGHT DIGITAL DIAGNOSTIC MAMMOGRAM 3D/2D WITH ADDITIONAL VIEWS: 01/28/2020 CLINICAL: Additional evaluation requested from prior study. Comparison is made to exams dated: 01/02/2020 mammogram, 01/22/2011 mammogram, and 01/20/2010 mammogram - [facility]. The tissue of right breast is heterogeneously dense. This may lower the sensitivity of mammography. There are diffuse round calcifications in the right breast at 11 o'clock middle depth. No other significant masses or calcifications are seen in the breast. IMPRESSION: PROBABLY BENIGN The diffuse round calcifications in the right breast are probably benign. A follow-up mammogram in 6 months is recommended. A follow-up mammogram in 6 months is recommended to demonstrate stability. This exam was interpreted at Station ID: [id number]. NOTE: For mammograms, a report in lay terms will be sent to the patient. Approximately 15% of breast malignancies will not be visualized mammographically. In the management of a palpable breast mass, a negative mammogram must not discourage biopsy of a clinically suspicious lesion. Electronically Signed By: Srikanth Sheikh acr/liliana:01/28/2020 14:04:14 letter sent: Followup Recommended ACR BI-RADS Category 3: Probably benign [id number]
== END ==
PROVIDERS: Family Provider Specialist; PCP Family Medicine; Referring Provider Family Medicine; Visit Provider Family Medicine
DX: R92.8 Other abnormal and inconclusive findings on diagnostic imaging of breast (principal); R92.1 Mammographic calcification found on diagnostic imaging of breast
CPT/HCPCS: 77065; G0279

== ENCOUNTER → 2020-04-24 13:37 | Outpatient (CLI) | payer OTHER, MEDICAID, SELFPAY ==
[2019-10-18 18:01] VITALS: BMI 21.2
[2020-04-24 14:09] LABS: HCO3 VBG 30 mmol/L (23-28); PCO2 VBG 56.5 mmHg (45-50); PO2 VBG 19 mmHg (35-45); Total CO2 VBG 32 mmol/L (24-29); pH VBG 7.34 (7.33-7.43)
[2020-04-24 14:10] LABS: Oxygen Saturation VBG 26 % (70-75)
== END ==
PROVIDERS: Family Provider Specialist; PCP Family Medicine; Referring Provider Family Medicine; Visit Provider Family Medicine
DX: G93.5 Compression of brain (principal)
CPT/HCPCS: 36415; 82805

== ENCOUNTER → 2020-05-21 15:06 | Outpatient (CLI) | payer OTHER, MEDICAID, SELFPAY ==
[2019-10-18 18:01] VITALS: BMI 21.2
[2020-05-21 16:03] LABS: PCO2 ABG 40.9 mmHg (35-45); pH ABG 7.44 (7.35-7.45)
[2020-05-21 16:04] LABS: Fractionated Inspired Oxygen 21; HCO3 ABG 28 mmol/L (22-26); Oxygen Saturation ABG 98 % (95-100); PO2 ABG 100 mmHg (80-100); TCO2 ABG 29 mmol/L (21-31)
== END ==
PROVIDERS: Family Provider Specialist; PCP Family Medicine; Referring Provider Family Medicine; Visit Provider Family Medicine
DX: G93.5 Compression of brain (principal)
CPT/HCPCS: 36600; 82805

== ENCOUNTER 2020-06-03 08:15 | Outpatient (RCR) | payer OTHER, MEDICAID, SELFPAY ==
[2019-10-18 18:01] VITALS: BMI 21.2
--- NOTE | 2020-02-12 16:04 | PT.OIE ---
Current Diagnoses Disorder of muscle, unspecified (02/12/20) Uterovaginal prolapse, unspecified (02/12/20) Unspecified urinary incontinence (02/12/20) Past Medical History (Last Updated 10/12/19 @ 14:07 by Alejandra Cabrera RN) Cystocele with uterine descensus Sleep apnea Past Surgical History (Last Reviewed 04/09/19 @ 16:20 by Chace Mace MD) Status post dilation and curettage (06/30/15) Visit Care Team Role Provider Type Nora Seymour MD Primary Care Provider Physician Specialty: Family Practice Address: [address] [place] [address], [facility] Email: [email or web address] Marla Bill MD Attending Provider Physician Family Provider Referring Provider Specialty: CABINETMAKER MAINTENANCE Address: [address] [place] [address], [facility] Email: [email or web address] Physical Therapy Initial Evaluation PT-OP-A Visit Information Start: 02/12/20 10:28 Freq: Status: Active Protocol: Document 02/12/20 10:30 AMB (Rec: 02/12/20 13:24 AMB [email or web address]) Out-Patient Physical Therapy Visit Information Visit Information Visit Type Initial Evaluation Visit Start Time 10:30 Visit Stop Time 11:15 Total Visit Minutes 45 Visit Number 1 PT-OP-B Current Condition Start: 02/12/20 10:28 Freq: Status: Active Protocol: Document 02/12/20 10:30 AMB (Rec: 02/12/20 11:12 AMB [id number]) Current Condition History of Current Condition Onset Date 7 years ago Current Complaints sciatica, back pain, pelvic floor prolapse with lifting History of Current Condition 10/18/19: pt had surgery anterior and posterior repair with sacrospinous ligament fixation and TVT suburethral sling, the sacrospinous ligament suture pulled through and had to be removed, so pt now feels like bladder prolapse is back. She was fit with a pessary, but hasn't been using it a lot as she doesn't like the idea of it. She has had 8 live births with a forceps delivery with the 6th baby. Since then she has had sciatic and back pain, and prolapse. 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 Treatment Goals Patient/Caregiver Goals Reduce back pain/ be able to lift with less pain/prolapse Prior Functional Status Baseline Function- ADL's Modified Independent Baseline Function- Mobility Modified Independent Current Functional Impairments (Reported) Functional Limitations- ADL's Difficulty transferring her 70 # son who is in a wheelchair, difficulty lifting chicken feed bags, difficulty returing to exercise Personal Factors Other Personal Factors That May Effect hypothyroid Therapy/Recovery PT-OP-C Subjective Start: 02/12/20 10:28 Freq: Status: Active Protocol: Document 02/12/20 10:30 AMB (Rec: 02/12/20 13:24 AMB [email or web address]) Patient Questionnaires Pelvic Pain and Urgency/Frequency Patient Symptom Scale Pelvic Pain Score 12 OP-PT Pain Assessment Pain Assessment Grid Paper Pain Assessment Grid Completed Yes Location Lower Back Pain Location Details radiates down R leg Intensity 4 Scale Used Numeric (0 - 10) PT-OP-J Posture/Palpation/Skin Start: 02/12/20 13:16 Freq: Status: Active Protocol: Document 02/12/20 10:30 AMB (Rec: 02/12/20 16:02 AMB [email or web address]) Posture Evaluation Comments Posture Comments L ASIS and medial malleolus are high , 3 finger width seperation above umbilicus for diastasis recti Palpation Assessment Location One Palpation Details L QL tightness PT-OP-K Range of Motion Start: 02/12/20 13:16 Freq: Status: Active Protocol: Document 02/12/20 10:30 AMB (Rec: 02/12/20 16:02 AMB [email or web address]) Lumbar Spine Range of Motion Lumbar Spine Active Degrees Testing Position Standing Flexion 60 Extension 30 Lateral Flexion Left 25 Lateral Flexion Right 25 Comments painful with flexion PT-OP-L Special Tests Start: 02/12/20 13:16 Freq: Status: Active Protocol: Document 02/12/20 10:30 AMB (Rec: 02/12/20 16:02 AMB [email or web address]) Special Tests Lumbar Spine Special Tests Straight Leg Raise Test Results pain with flexion and adduction PT-OP-Q Treatments Start: 02/12/20 10:28 Freq: Status: Active Protocol: Document 02/12/20 10:30 AMB (Rec: 02/12/20 13:28 AMB [email or web address]) Therapeutic Exercises Supine Exercises 1 Supine Exercise Name sciatic n glide Comments edge into pain don't push past Sidelying Exercises 1 Sidelying Exercise Name QL stretch (L) Manual Therapy Treatment Taping 1 Body Location for diastasis recti Type of Tape Kinesio Tape PT-OP-T Assessment and Plan Start: 02/12/20 10:28 Freq: Status: Active Protocol: Document 02/12/20 10:30 AMB (Rec: 02/13/20 14:47 AMB [email or web address]) Physical Therapy Assessment Rehab Potential Rehabilitation Potential Good Evaluation Complexity Number of Personal Factors/Comorbidities 1-2 Number of Body Systems Impaired 4 or More Clinical Presentation at Evaluation Evolving Impairments Impairments Functional Activities, Functional Mobility,Pain, Strength Goals Two Impairment Pelvic floor strength Short Term Goal (STG) 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 STG Duration 5 weeks Hoist Operator Goal (LTG) Darleen will lift 20# from floor to waist height while maintaining a pelvic floor contraction LTG Duration 10 weeks One Impairment Back pain Short Term Goal (STG) Darleen will be independent with a HEP to strengthen her pelvic floor and core. STG Duration 5 weeks Hoist Operator Goal (LTG) Darleen will transfer her son with good body mechanics and pain of 2/10 or less. LTG Duration 10 weeks Assessment Summary Assessment Darleen attends physical therapy with significant pelvic floor history of recent surgery for prolapse, with return of bladder sx. She denies incontinence, but is mostly concerned with her pain. She does have right sided sciatica , diastasis recti and difficulty lifting due to core weakness. She will benefit from physical therapy to promote improved body mechanics and core strength to reduce her pain. Physical Therapy Plan Frequency and Duration Frequency of Treatment 1x/Week Duration of Treatment 10 weeks Plan of Care Start Date 02/12/20 Plan of Care End Date 04/22/20 Therapeutic Interventions Therapeutic Interventions Home Exercise Program,Manual Therapy,Neuromuscular Re- education,Self-Care/Home Management,Therapeutic Activities,Therapeutic Exercises Modalities Biofeedback,Cold Pack/Ice Massage,Electric Stimulation, Hot Packs Next Visit Focus/Plan Next Note Type Treatment Note Next Visit Plan Reassess sciatic n glide, diastasis recti taping, evaluate pelvic floor core strength
--- NOTE | 2020-02-12 16:04 | PT.OPPOC ---
Physical, Occupational & Speech Therapy At [facility] Current Diagnoses Disorder of muscle, unspecified (02/12/20) Uterovaginal prolapse, unspecified (02/12/20) Unspecified urinary incontinence (02/12/20) Visit Care Team Role Provider Type Nora Seymour MD Primary Care Provider Physician Specialty: Family Practice Address: [address] [place] [address], [place], [address] Email: [email or web address] Marla Bill MD Attending Provider Physician Family Provider Referring Provider Specialty: SHAFT HEADMAN Address: [address] [place] [address], [address] Email: [email or web address] Plan Of Care PT-OP-T Assessment and Plan Start: 02/12/20 10:28 Freq: Status: Active Protocol: Document 02/12/20 10:30 AMB (Rec: 02/13/20 14:47 AMB [email or web address]) Physical Therapy Assessment Rehab Potential Rehabilitation Potential Good Evaluation Complexity Number of Personal Factors/Comorbidities 1-2 Number of Body Systems Impaired 4 or More Clinical Presentation at Evaluation Evolving Impairments Impairments Functional Activities, Functional Mobility,Pain, Strength Goals Two Impairment Pelvic floor strength Short Term Goal (STG) 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 STG Duration 5 weeks Branding Machine Tender Goal (LTG) Darleen will lift 20# from floor to waist height while maintaining a pelvic floor contraction LTG Duration 10 weeks One Impairment Back pain Short Term Goal (STG) Darleen will be independent with a HEP to strengthen her pelvic floor and core. STG Duration 5 weeks Fci Goal (LTG) Darleen will transfer her son with good body mechanics and pain of 2/10 or less. LTG Duration 10 weeks Assessment Summary Assessment Darleen attends physical therapy with significant pelvic floor history of recent surgery for prolapse, with return of bladder sx. She denies incontinence, but is mostly concerned with her pain. She does have right sided sciatica , diastasis recti and difficulty lifting due to core weakness. She will benefit from physical therapy to promote improved body mechanics and core strength to reduce her pain. Physical Therapy Plan Frequency and Duration Frequency of Treatment 1x/Week Duration of Treatment 10 weeks Plan of Care Start Date 02/12/20 Plan of Care End Date 04/22/20 Therapeutic Interventions Therapeutic Interventions Home Exercise Program,Manual Therapy,Neuromuscular Re- education,Self-Care/Home Management,Therapeutic Activities,Therapeutic Exercises Modalities Biofeedback,Cold Pack/Ice Massage,Electric Stimulation, Hot Packs Next Visit Focus/Plan Next Note Type Treatment Note Next Visit Plan Reassess sciatic n glide, diastasis recti taping, evaluate pelvic floor core strength Plan of Care Dates Plan of Care Start Date 02/12/20 Plan of Care End Date 04/22/20 Electronically Signed by: Rhonda Gandara, PT 02/13/20 [id number] Please Sign and Return: I have reviewed this Plan of Care and certify that the skilled therapy services above are required to meet the patient?s needs. Physician Signature Date Printed Name and Credentials Clinical Instructor Signature Printed Name and Credentials
--- NOTE | 2020-02-27 08:39 | PT.OTN ---
Current Diagnoses Disorder of muscle, unspecified (02/26/20) Uterovaginal prolapse, unspecified (02/26/20) Unspecified urinary incontinence (02/26/20) Physical Therapy Treatment Note PT-OP-A Visit Information Start: 02/12/20 10:28 Freq: Status: Active Protocol: Document 02/26/20 10:15 AMB (Rec: 02/26/20 10:58 AMB [id number]) Out-Patient Physical Therapy Visit Information Visit Information Visit Type Treatment Note Visit Start Time 10:15 Visit Stop Time 11:00 Total Visit Minutes 45 Visit Number 2 PT-OP-B Current Condition Start: 02/12/20 10:28 Freq: Status: Active Protocol: Document 02/12/20 10:30 AMB (Rec: 02/12/20 11:12 AMB [id number]) Current Condition History of Current Condition Onset Date 7 years ago Current Complaints sciatica, back pain, pelvic floor prolapse with lifting History of Current Condition 10/18/19: pt had surgery anterior and posterior repair with sacrospinous ligament fixation and TVT suburethral sling, the sacrospinous ligament suture pulled through and had to be removed, so pt now feels like bladder prolapse is back. She was fit with a pessary, but hasn't been using it a lot as she doesn't like the idea of it. She has had 8 live births with a forceps delivery with the 6th baby. Since then she has had sciatic and back pain, and prolapse. 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 Treatment Goals Patient/Caregiver Goals Reduce back pain/ be able to lift with less pain/prolapse Prior Functional Status Baseline Function- ADL's Modified Independent Baseline Function- Mobility Modified Independent Current Functional Impairments (Reported) Functional Limitations- ADL's Difficulty transferring her 70 # son who is in a wheelchair, difficulty lifting chicken feed bags, difficulty returing to exercise Personal Factors Other Personal Factors That May Effect hypothyroid Therapy/Recovery PT-OP-C Subjective Start: 02/12/20 10:28 Freq: Status: Active Protocol: Document 02/26/20 10:15 AMB (Rec: 02/27/20 08:38 AMB [email or web address]) OP-PT Subjective Patient Comments Patient Comments Pt liked the tape, but then it started itching, so she couldn't tolerate it. PT-OP-J Posture/Palpation/Skin Start: 02/12/20 13:16 Freq: Status: Active Protocol: Document 02/12/20 10:30 AMB (Rec: 02/12/20 16:02 AMB [email or web address]) Posture Evaluation Comments Posture Comments L ASIS and medial malleolus are high , 3 finger width seperation above umbilicus for diastasis recti Palpation Assessment Location One Palpation Details L QL tightness PT-OP-K Range of Motion Start: 02/12/20 13:16 Freq: Status: Active Protocol: Document 02/12/20 10:30 AMB (Rec: 02/12/20 16:02 AMB [email or web address]) Lumbar Spine Range of Motion Lumbar Spine Active Degrees Testing Position Standing Flexion 60 Extension 30 Lateral Flexion Left 25 Lateral Flexion Right 25 Comments painful with flexion PT-OP-L Special Tests Start: 02/12/20 13:16 Freq: Status: Active Protocol: Document 02/12/20 10:30 AMB (Rec: 02/12/20 16:02 AMB [email or web address]) Special Tests Lumbar Spine Special Tests Straight Leg Raise Test Results pain with flexion and adduction PT-OP-Q Treatments Start: 02/12/20 10:28 Freq: Status: Active Protocol: Document 02/26/20 10:15 AMB (Rec: 02/27/20 08:38 AMB [email or web address]) Therapeutic Exercises Supine Exercises 3 Supine Exercise Name SLR Reps/Minutes 10 2 Supine Exercise Name partial bridge Reps/Minutes 10 Comments with pelvic floor and TA Other Exercises 3 Other Exercise Name lower trunk rotation 2 Other Exercise Name binu pose Reps/Minutes 30x2 1 Other Exercise Name bird dog Reps/Minutes 10 PT-OP-T Assessment and Plan Start: 02/12/20 10:28 Freq: Status: Active Protocol: Document 02/26/20 10:15 AMB (Rec: 02/27/20 08:38 AMB [email or web address]) Physical Therapy Assessment Assessment Summary Assessment Encouraged pt in options for abdominal support- re leggings /binder. Will need to continue to work on lifting mechanics. Physical Therapy Plan Next Visit Focus/Plan Next Note Type Treatment Note Next Visit Plan Progress core strengthening, posture, lifting
--- NOTE | 2020-03-04 08:15 | PT.OTN ---
Current Diagnoses Disorder of muscle, unspecified (03/04/20) Uterovaginal prolapse, unspecified (03/04/20) Unspecified urinary incontinence (03/04/20) Physical Therapy Treatment Note PT-OP-A Visit Information Start: 02/12/20 10:28 Freq: Status: Active Protocol: Document 03/04/20 07:34 SP (Rec: 03/04/20 09:39 SP [id number]) Out-Patient Physical Therapy Visit Information Visit Information Visit Type Treatment Note Visit Start Time 07:34 Visit Stop Time 08:15 Total Visit Minutes 41 Visit Number 3 Number of PHYSICIAN ASSISTANT SURGERY Visits 1 PT-OP-B Current Condition Start: 02/12/20 10:28 Freq: Status: Active Protocol: Document 02/12/20 10:30 AMB (Rec: 02/12/20 11:12 AMB [id number]) Current Condition History of Current Condition Onset Date 7 years ago Current Complaints sciatica, back pain, pelvic floor prolapse with lifting History of Current Condition 10/18/19: pt had surgery anterior and posterior repair with sacrospinous ligament fixation and TVT suburethral sling, the sacrospinous ligament suture pulled through and had to be removed, so pt now feels like bladder prolapse is back. She was fit with a pessary, but hasn't been using it a lot as she doesn't like the idea of it. She has had 8 live births with a forceps delivery with the 6th baby. Since then she has had sciatic and back pain, and prolapse. 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 Treatment Goals Patient/Caregiver Goals Reduce back pain/ be able to lift with less pain/prolapse Prior Functional Status Baseline Function- ADL's Modified Independent Baseline Function- Mobility Modified Independent Current Functional Impairments (Reported) Functional Limitations- ADL's Difficulty transferring her 70 # son who is in a wheelchair, difficulty lifting chicken feed bags, difficulty returing to exercise Personal Factors Other Personal Factors That May Effect hypothyroid Therapy/Recovery PT-OP-C Subjective Start: 02/12/20 10:28 Freq: Status: Active Protocol: Document 03/04/20 07:34 SP (Rec: 03/04/20 09:39 SP [id number]) OP-PT Subjective Patient Comments Patient Comments Pt reported compliant with HEP but is challenging with TA and pelvic alignment. PT-OP-J Posture/Palpation/Skin Start: 02/12/20 13:16 Freq: Status: Active Protocol: Document 02/12/20 10:30 AMB (Rec: 02/12/20 16:02 AMB [email or web address]) Posture Evaluation Comments Posture Comments L ASIS and medial malleolus are high , 3 finger width seperation above umbilicus for diastasis recti Palpation Assessment Location One Palpation Details L QL tightness PT-OP-K Range of Motion Start: 02/12/20 13:16 Freq: Status: Active Protocol: Document 02/12/20 10:30 AMB (Rec: 02/12/20 16:02 AMB [email or web address]) Lumbar Spine Range of Motion Lumbar Spine Active Degrees Testing Position Standing Flexion 60 Extension 30 Lateral Flexion Left 25 Lateral Flexion Right 25 Comments painful with flexion PT-OP-L Special Tests Start: 02/12/20 13:16 Freq: Status: Active Protocol: Document 02/12/20 10:30 AMB (Rec: 02/12/20 16:02 AMB [email or web address]) Special Tests Lumbar Spine Special Tests Straight Leg Raise Test Results pain with flexion and adduction PT-OP-Q Treatments Start: 02/12/20 10:28 Freq: Status: Active Protocol: Document 03/04/20 07:34 SP (Rec: 03/04/20 09:39 SP [id number]) Therapeutic Exercises Supine Exercises fall out Supine Exercise Name DL Side bilateral Equipment Used TB #1 loop Reps/Minutes x10 Comments good slow pacing & TA/ PF engagement 3 Supine Exercise Name SLR Reps/Minutes x10 2 Supine Exercise Name partial bridge Reps/Minutes 10 Comments with pelvic floor and TA 1 Supine Exercise Name sciatic n glide (discussed supine and showed seated) Comments edge into pain don't push past Sidelying Exercises 1 Sidelying Exercise Name QL stretch (L) Reps/Minutes 30 Sitting Exercises TA sit <> stand Reps/Minutes 5 Comments straight back, hip hinge only to engage TA QL Side bilateral Reps/Minutes 30 Other Exercises 1 Other Exercise Name bird dog Reps/Minutes x5 R and L Comments cued neutral LS, level pelvis PT-OP-T Assessment and Plan Start: 02/12/20 10:28 Freq: Status: Active Protocol: Document 03/04/20 07:34 SP (Rec: 03/04/20 09:39 SP [id number]) Physical Therapy Assessment Goals Two Impairment Pelvic floor strength Short Term Goal (STG) 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 STG Duration 5 weeks Enforcement Officer Goal (LTG) Darleen will lift 20# from floor to waist height while maintaining a pelvic floor contraction LTG Duration 10 weeks One Impairment Back pain Short Term Goal (STG) Darleen will be independent with a HEP to strengthen her pelvic floor and core. STG Duration 5 weeks Long-Term Goal (LTG) Darleen will transfer her son with good body mechanics and pain of 2/10 or less. LTG Duration 10 weeks Assessment Summary Assessment Pt tolerated tx well, cued for little more anterior tilt to neutral during TA bridge and PPT during bird dog. Improved performance today. Initated resisted knee fall out w/ #1 Tb loop with good self TA/ pelvic alignement corrections. No pain and felt more TA/ alignement active leaving. Physical Therapy Plan Frequency and Duration Frequency of Treatment 1x/Week Duration of Treatment 10 weeks Plan of Care Start Date 02/12/20 Plan of Care End Date 04/22/20 Therapeutic Interventions Therapeutic Interventions Home Exercise Program,Manual Therapy,Neuromuscular Re- education,Self-Care/Home Management,Therapeutic Activities,Therapeutic Exercises Modalities Biofeedback,Cold Pack/Ice Massage,Electric Stimulation, Hot Packs Next Visit Focus/Plan Next Note Type Treatment Note Next Visit Plan Assess res ponse to last tx, review HEP, added resisted DLFO . Future tx: can we bring in her son to assess body mechanics for lifting, trunk alignment? Continue per PT POC:Progress core strengthening, posture, lifting
--- NOTE | 2020-03-12 15:32 | PT.OTN ---
Current Diagnoses Disorder of muscle, unspecified (03/11/20) Uterovaginal prolapse, unspecified (03/11/20) Unspecified urinary incontinence (03/11/20) Physical Therapy Treatment Note PT-OP-A Visit Information Start: 02/12/20 10:28 Freq: Status: Active Protocol: Document 03/11/20 11:51 AMB (Rec: 03/11/20 11:55 AMB [email or web address]) Out-Patient Physical Therapy Visit Information Visit Information Visit Type Treatment Note Visit Note pt arrived 15 min late, was confused as to appt time Visit Start Time 10:30 Visit Stop Time 11:00 Total Visit Minutes 30 Visit Number 4 PT-OP-B Current Condition Start: 02/12/20 10:28 Freq: Status: Active Protocol: Document 02/12/20 10:30 AMB (Rec: 02/12/20 11:12 AMB [id number]) Current Condition History of Current Condition Onset Date 7 years ago Current Complaints sciatica, back pain, pelvic floor prolapse with lifting History of Current Condition 10/18/19: pt had surgery anterior and posterior repair with sacrospinous ligament fixation and TVT suburethral sling, the sacrospinous ligament suture pulled through and had to be removed, so pt now feels like bladder prolapse is back. She was fit with a pessary, but hasn't been using it a lot as she doesn't like the idea of it. She has had 8 live births with a forceps delivery with the 6th baby. Since then she has had sciatic and back pain, and prolapse. 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 Treatment Goals Patient/Caregiver Goals Reduce back pain/ be able to lift with less pain/prolapse Prior Functional Status Baseline Function- ADL's Modified Independent Baseline Function- Mobility Modified Independent Current Functional Impairments (Reported) Functional Limitations- ADL's Difficulty transferring her 70 # son who is in a wheelchair, difficulty lifting chicken feed bags, difficulty returing to exercise Personal Factors Other Personal Factors That May Effect hypothyroid Therapy/Recovery PT-OP-C Subjective Start: 02/12/20 10:28 Freq: Status: Active Protocol: Document 03/11/20 11:51 AMB (Rec: 03/11/20 11:55 AMB [email or web address]) OP-PT Subjective Patient Comments Patient Comments Pt feels like sciatica is getting better, can still feel it with forward fold PT-OP-J Posture/Palpation/Skin Start: 02/12/20 13:16 Freq: Status: Active Protocol: Document 02/12/20 10:30 AMB (Rec: 02/12/20 16:02 AMB [email or web address]) Posture Evaluation Comments Posture Comments L ASIS and medial malleolus are high , 3 finger width seperation above umbilicus for diastasis recti Palpation Assessment Location One Palpation Details L QL tightness PT-OP-K Range of Motion Start: 02/12/20 13:16 Freq: Status: Active Protocol: Document 02/12/20 10:30 AMB (Rec: 02/12/20 16:02 AMB [email or web address]) Lumbar Spine Range of Motion Lumbar Spine Active Degrees Testing Position Standing Flexion 60 Extension 30 Lateral Flexion Left 25 Lateral Flexion Right 25 Comments painful with flexion PT-OP-L Special Tests Start: 02/12/20 13:16 Freq: Status: Active Protocol: Document 02/12/20 10:30 AMB (Rec: 02/12/20 16:02 AMB [email or web address]) Special Tests Lumbar Spine Special Tests Straight Leg Raise Test Results pain with flexion and adduction PT-OP-Q Treatments Start: 02/12/20 10:28 Freq: Status: Active Protocol: Document 03/11/20 10:30 AMB (Rec: 03/12/20 15:31 AMB [id number]) Therapeutic Exercises Supine Exercises 4 Supine Exercise Name sEMG Reps/Minutes 15 min Comments pelvic floor long holds and quick flicks with avoiding compensation 1 Supine Exercise Name sciatic n glide (discussed supine and showed seated) Comments edge into pain don't push past Other Exercises 1 Other Exercise Name bird dog Reps/Minutes x5 R and L Comments cued neutral LS, level pelvis PT-OP-T Assessment and Plan Start: 02/12/20 10:28 Freq: Status: Active Protocol: Document 03/11/20 11:51 AMB (Rec: 03/11/20 11:55 AMB [email or web address]) Physical Therapy Assessment Assessment Summary Assessment Pt can have a video of her transferring her son, her son is also going to need PT, so possible to get some transfer training for his PT in the future. PT tends to over use her lumbar spine even with just doing kegels, but overall did ok with sEMG Physical Therapy Plan Next Visit Focus/Plan Next Visit Plan Continue core/pelvic floor stability training with continued education on lifting /body mechanics.
--- NOTE | 2020-03-18 14:50 | PT.OTN ---
Current Diagnoses Disorder of muscle, unspecified (03/18/20) Uterovaginal prolapse, unspecified (03/18/20) Unspecified urinary incontinence (03/18/20) Physical Therapy Treatment Note PT-OP-A Visit Information Start: 02/12/20 10:28 Freq: Status: Active Protocol: Document 03/18/20 10:15 AMB (Rec: 03/22/20 14:50 AMB [email or web address]) Out-Patient Physical Therapy Visit Information Visit Information Visit Type Treatment Note Visit Start Time 10:15 Visit Stop Time 11:00 Total Visit Minutes 45 Visit Number 5 PT-OP-B Current Condition Start: 02/12/20 10:28 Freq: Status: Active Protocol: Document 02/12/20 10:30 AMB (Rec: 02/12/20 11:12 AMB [id number]) Current Condition History of Current Condition Onset Date 7 years ago Current Complaints sciatica, back pain, pelvic floor prolapse with lifting History of Current Condition 10/18/19: pt had surgery anterior and posterior repair with sacrospinous ligament fixation and TVT suburethral sling, the sacrospinous ligament suture pulled through and had to be removed, so pt now feels like bladder prolapse is back. She was fit with a pessary, but hasn't been using it a lot as she doesn't like the idea of it. She has had 8 live births with a forceps delivery with the 6th baby. Since then she has had sciatic and back pain, and prolapse. 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 Treatment Goals Patient/Caregiver Goals Reduce back pain/ be able to lift with less pain/prolapse Prior Functional Status Baseline Function- ADL's Modified Independent Baseline Function- Mobility Modified Independent Current Functional Impairments (Reported) Functional Limitations- ADL's Difficulty transferring her 70 # son who is in a wheelchair, difficulty lifting chicken feed bags, difficulty returing to exercise Personal Factors Other Personal Factors That May Effect hypothyroid Therapy/Recovery PT-OP-C Subjective Start: 02/12/20 10:28 Freq: Status: Active Protocol: Document 03/18/20 10:15 AMB (Rec: 03/22/20 14:50 AMB [email or web address]) OP-PT Subjective Patient Comments Patient Comments Pt has been working on pelvic floor strengthening, hasn't been transferring her son as much. Feels like sciatica is getting better, but if she flexes forward in standing it is stil l there. PT-OP-J Posture/Palpation/Skin Start: 02/12/20 13:16 Freq: Status: Active Protocol: Document 02/12/20 10:30 AMB (Rec: 02/12/20 16:02 AMB [email or web address]) Posture Evaluation Comments Posture Comments L ASIS and medial malleolus are high , 3 finger width seperation above umbilicus for diastasis recti Palpation Assessment Location One Palpation Details L QL tightness PT-OP-K Range of Motion Start: 02/12/20 13:16 Freq: Status: Active Protocol: Document 02/12/20 10:30 AMB (Rec: 02/12/20 16:02 AMB [email or web address]) Lumbar Spine Range of Motion Lumbar Spine Active Degrees Testing Position Standing Flexion 60 Extension 30 Lateral Flexion Left 25 Lateral Flexion Right 25 Comments painful with flexion PT-OP-L Special Tests Start: 02/12/20 13:16 Freq: Status: Active Protocol: Document 02/12/20 10:30 AMB (Rec: 02/12/20 16:02 AMB [email or web address]) Special Tests Lumbar Spine Special Tests Straight Leg Raise Test Results pain with flexion and adduction PT-OP-Q Treatments Start: 02/12/20 10:28 Freq: Status: Active Protocol: Document 03/18/20 10:15 AMB (Rec: 03/22/20 14:50 AMB [email or web address]) Gym Equipment Therapeutic Ball 1 Exercise Details 65cm Comments TKE, LAQ, with TA and pelvic floor Therapeutic Exercises Supine Exercises 3 Supine Exercise Name table top Comments challenging 2 Supine Exercise Name SLR with TA and pelvic floor Reps/Minutes 2x10 1 Supine Exercise Name sciatic n glide (discussed supine and showed seated) Comments edge into pain don't push past Sidelying Exercises 2 Sidelying Exercise Name QL stretch Reps/Minutes 30x3 Sitting Exercises TA sit <> stand Reps/Minutes 5 Comments straight back, hip hinge only to engage TA Other Exercises 2 Other Exercise Name binu pose with side stretch Reps/Minutes 30x4 1 Other Exercise Name bird dog Reps/Minutes x5 R and L Comments cued neutral LS, level pelvis PT-OP-T Assessment and Plan Start: 02/12/20 10:28 Freq: Status: Active Protocol: Document 03/18/20 10:15 AMB (Rec: 03/22/20 14:50 AMB [email or web address]) Physical Therapy Assessment Assessment Summary Assessment Pt did well with increasing challenge of core stabilization exericises, but loses contraction with double leg exercises. Physical Therapy Plan Next Visit Focus/Plan Next Visit Plan Continue core/pelvic floor stability training with continued education on lifting /body mechanics.
--- NOTE | 2020-03-28 10:54 | PT.OTN ---
Current Diagnoses Disorder of muscle, unspecified (03/28/20) Uterovaginal prolapse, unspecified (03/28/20) Unspecified urinary incontinence (03/28/20) Physical Therapy Treatment Note PT-OP-A Visit Information Start: 02/12/20 10:28 Freq: Status: Active Protocol: Document 03/28/20 07:30 AMB (Rec: 03/28/20 12:01 AMB [email or web address]) Out-Patient Physical Therapy Visit Information Visit Information Visit Type Treatment Note Visit Start Time 07:30 Visit Stop Time 08:15 Total Visit Minutes 45 Visit Number 6 PT-OP-B Current Condition Start: 02/12/20 10:28 Freq: Status: Active Protocol: Document 02/12/20 10:30 AMB (Rec: 02/12/20 11:12 AMB [id number]) Current Condition History of Current Condition Onset Date 7 years ago Current Complaints sciatica, back pain, pelvic floor prolapse with lifting History of Current Condition 10/18/19: pt had surgery anterior and posterior repair with sacrospinous ligament fixation and TVT suburethral sling, the sacrospinous ligament suture pulled through and had to be removed, so pt now feels like bladder prolapse is back. She was fit with a pessary, but hasn't been using it a lot as she doesn't like the idea of it. She has had 8 live births with a forceps delivery with the 6th baby. Since then she has had sciatic and back pain, and prolapse. 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 Treatment Goals Patient/Caregiver Goals Reduce back pain/ be able to lift with less pain/prolapse Prior Functional Status Baseline Function- ADL's Modified Independent Baseline Function- Mobility Modified Independent Current Functional Impairments (Reported) Functional Limitations- ADL's Difficulty transferring her 70 # son who is in a wheelchair, difficulty lifting chicken feed bags, difficulty returing to exercise Personal Factors Other Personal Factors That May Effect hypothyroid Therapy/Recovery PT-OP-C Subjective Start: 02/12/20 10:28 Freq: Status: Active Protocol: Document 03/28/20 07:30 AMB (Rec: 03/28/20 12:01 AMB [email or web address]) OP-PT Subjective Patient Comments Patient Comments Pt had an increase in sx after carrying her 2 year old. PT-OP-J Posture/Palpation/Skin Start: 02/12/20 13:16 Freq: Status: Active Protocol: Document 02/12/20 10:30 AMB (Rec: 02/12/20 16:02 AMB [email or web address]) Posture Evaluation Comments Posture Comments L ASIS and medial malleolus are high , 3 finger width seperation above umbilicus for diastasis recti Palpation Assessment Location One Palpation Details L QL tightness PT-OP-K Range of Motion Start: 02/12/20 13:16 Freq: Status: Active Protocol: Document 02/12/20 10:30 AMB (Rec: 02/12/20 16:02 AMB [email or web address]) Lumbar Spine Range of Motion Lumbar Spine Active Degrees Testing Position Standing Flexion 60 Extension 30 Lateral Flexion Left 25 Lateral Flexion Right 25 Comments painful with flexion PT-OP-L Special Tests Start: 02/12/20 13:16 Freq: Status: Active Protocol: Document 02/12/20 10:30 AMB (Rec: 02/12/20 16:02 AMB [email or web address]) Special Tests Lumbar Spine Special Tests Straight Leg Raise Test Results pain with flexion and adduction PT-OP-Q Treatments Start: 02/12/20 10:28 Freq: Status: Active Protocol: Document 03/29/20 10:50 AMB (Rec: 03/29/20 10:54 AMB [email or web address]) Gym Equipment Therapeutic Ball 1 Exercise Details 65cm Comments TKE, LAQ, with TA and pelvic floor Manual Therapy Treatment Soft Tissue Mobilization 1 Body Location Bilat QL Mobilization Type Myofascial Release,Trigger Point Release Intensity/Depth Moderate Body Position Sidelying PT-OP-T Assessment and Plan Start: 02/12/20 10:28 Freq: Status: Active Protocol: Document 03/28/20 07:30 AMB (Rec: 03/28/20 12:01 AMB [email or web address]) Physical Therapy Assessment Assessment Summary Assessment Pt was very tight in bilateral QL today, worked on posture. Physical Therapy Plan Next Visit Focus/Plan Next Note Type Treatment Note Next Visit Plan Continue core/pelvic floor stability training with continued education on lifting /body mechanics.
--- NOTE | 2020-04-02 15:34 | PT.OTN ---
Current Diagnoses Disorder of muscle, unspecified (04/02/20) Uterovaginal prolapse, unspecified (04/02/20) Unspecified urinary incontinence (04/02/20) Physical Therapy Treatment Note PT-OP-A Visit Information Start: 02/12/20 10:28 Freq: Status: Active Protocol: Document 04/02/20 14:15 AMB (Rec: 04/02/20 14:43 AMB [id number]) Out-Patient Physical Therapy Visit Information Visit Information Visit Type Treatment Note Visit Start Time 14:15 Visit Stop Time 15:00 Total Visit Minutes 45 Visit Number 7 PT-OP-B Current Condition Start: 02/12/20 10:28 Freq: Status: Active Protocol: Document 02/12/20 10:30 AMB (Rec: 02/12/20 11:12 AMB [id number]) Current Condition History of Current Condition Onset Date 7 years ago Current Complaints sciatica, back pain, pelvic floor prolapse with lifting History of Current Condition 10/18/19: pt had surgery anterior and posterior repair with sacrospinous ligament fixation and TVT suburethral sling, the sacrospinous ligament suture pulled through and had to be removed, so pt now feels like bladder prolapse is back. She was fit with a pessary, but hasn't been using it a lot as she doesn't like the idea of it. She has had 8 live births with a forceps delivery with the 6th baby. Since then she has had sciatic and back pain, and prolapse. 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 Treatment Goals Patient/Caregiver Goals Reduce back pain/ be able to lift with less pain/prolapse Prior Functional Status Baseline Function- ADL's Modified Independent Baseline Function- Mobility Modified Independent Current Functional Impairments (Reported) Functional Limitations- ADL's Difficulty transferring her 70 # son who is in a wheelchair, difficulty lifting chicken feed bags, difficulty returing to exercise Personal Factors Other Personal Factors That May Effect hypothyroid Therapy/Recovery PT-OP-C Subjective Start: 02/12/20 10:28 Freq: Status: Active Protocol: Document 04/02/20 14:15 AMB (Rec: 04/02/20 14:43 AMB [id number]) OP-PT Subjective Patient Comments Patient Comments Pt is still feeling sciatica when she is driving in the car . PT-OP-J Posture/Palpation/Skin Start: 02/12/20 13:16 Freq: Status: Active Protocol: Document 02/12/20 10:30 AMB (Rec: 02/12/20 16:02 AMB [email or web address]) Posture Evaluation Comments Posture Comments L ASIS and medial malleolus are high , 3 finger width seperation above umbilicus for diastasis recti Palpation Assessment Location One Palpation Details L QL tightness PT-OP-K Range of Motion Start: 02/12/20 13:16 Freq: Status: Active Protocol: Document 02/12/20 10:30 AMB (Rec: 02/12/20 16:02 AMB [email or web address]) Lumbar Spine Range of Motion Lumbar Spine Active Degrees Testing Position Standing Flexion 60 Extension 30 Lateral Flexion Left 25 Lateral Flexion Right 25 Comments painful with flexion PT-OP-L Special Tests Start: 02/12/20 13:16 Freq: Status: Active Protocol: Document 02/12/20 10:30 AMB (Rec: 02/12/20 16:02 AMB [email or web address]) Special Tests Lumbar Spine Special Tests Straight Leg Raise Test Results pain with flexion and adduction PT-OP-Q Treatments Start: 02/12/20 10:28 Freq: Status: Active Protocol: Document 04/02/20 14:15 AMB (Rec: 04/02/20 15:34 AMB [id number]) Therapeutic Exercises Supine Exercises 4 Supine Exercise Name single leg bridge Reps/Minutes 2x10 1 Supine Exercise Name sciatic n glide (discussed supine and showed seated) Comments edge into pain don't push past Sidelying Exercises 2 Sidelying Exercise Name QL stretch Reps/Minutes 30x3 Manual Therapy Treatment Soft Tissue Mobilization 2 Body Location R piriformis Mobilization Type Myofascial Release,Rolling, Trigger Point Release Intensity/Depth Moderate Body Position Sidelying PT-OP-T Assessment and Plan Start: 02/12/20 10:28 Freq: Status: Active Protocol: Document 04/02/20 14:15 AMB (Rec: 04/02/20 15:13 AMB [email or web address]) Physical Therapy Assessment Assessment Summary Assessment Darleen is getting frustrated that she continued to have sciatica this last week. She rates the pain as 3/10, which is better than the 4/10 that she rated it at eval, but driving definitely continues to flare it up. Worked mostly on glutes today, although QL continues to be tight. Physical Therapy Plan Next Visit Focus/Plan Next Note Type Treatment Note Next Visit Plan Continue core/pelvic floor stability training with continued education on lifting /body mechanics.
--- NOTE | 2020-04-09 15:50 | PT.OTN ---
Current Diagnoses Disorder of muscle, unspecified (04/09/20) Uterovaginal prolapse, unspecified (04/09/20) Unspecified urinary incontinence (04/09/20) Physical Therapy Treatment Note PT-OP-A Visit Information Start: 02/12/20 10:28 Freq: Status: Active Protocol: Document 04/09/20 08:15 AMB (Rec: 04/09/20 08:51 AMB [id number]) Out-Patient Physical Therapy Visit Information Visit Information Visit Type Treatment Note Visit Start Time 08:15 Visit Stop Time 09:00 Total Visit Minutes 45 Visit Number 8 PT-OP-B Current Condition Start: 02/12/20 10:28 Freq: Status: Active Protocol: Document 02/12/20 10:30 AMB (Rec: 02/12/20 11:12 AMB [id number]) Current Condition History of Current Condition Onset Date 7 years ago Current Complaints sciatica, back pain, pelvic floor prolapse with lifting History of Current Condition 10/18/19: pt had surgery anterior and posterior repair with sacrospinous ligament fixation and TVT suburethral sling, the sacrospinous ligament suture pulled through and had to be removed, so pt now feels like bladder prolapse is back. She was fit with a pessary, but hasn't been using it a lot as she doesn't like the idea of it. She has had 8 live births with a forceps delivery with the 6th baby. Since then she has had sciatic and back pain, and prolapse. 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 Treatment Goals Patient/Caregiver Goals Reduce back pain/ be able to lift with less pain/prolapse Prior Functional Status Baseline Function- ADL's Modified Independent Baseline Function- Mobility Modified Independent Current Functional Impairments (Reported) Functional Limitations- ADL's Difficulty transferring her 70 # son who is in a wheelchair, difficulty lifting chicken feed bags, difficulty returing to exercise Personal Factors Other Personal Factors That May Effect hypothyroid Therapy/Recovery PT-OP-C Subjective Start: 02/12/20 10:28 Freq: Status: Active Protocol: Document 04/09/20 08:15 AMB (Rec: 04/09/20 08:51 AMB [id number]) OP-PT Subjective Patient Comments Patient Comments Pt reports an improvement in sx over the last week. PT-OP-J Posture/Palpation/Skin Start: 02/12/20 13:16 Freq: Status: Active Protocol: Document 02/12/20 10:30 AMB (Rec: 02/12/20 16:02 AMB [email or web address]) Posture Evaluation Comments Posture Comments L ASIS and medial malleolus are high , 3 finger width seperation above umbilicus for diastasis recti Palpation Assessment Location One Palpation Details L QL tightness PT-OP-K Range of Motion Start: 02/12/20 13:16 Freq: Status: Active Protocol: Document 02/12/20 10:30 AMB (Rec: 02/12/20 16:02 AMB [email or web address]) Lumbar Spine Range of Motion Lumbar Spine Active Degrees Testing Position Standing Flexion 60 Extension 30 Lateral Flexion Left 25 Lateral Flexion Right 25 Comments painful with flexion PT-OP-L Special Tests Start: 02/12/20 13:16 Freq: Status: Active Protocol: Document 02/12/20 10:30 AMB (Rec: 02/12/20 16:02 AMB [email or web address]) Special Tests Lumbar Spine Special Tests Straight Leg Raise Test Results pain with flexion and adduction PT-OP-Q Treatments Start: 02/12/20 10:28 Freq: Status: Active Protocol: Document 04/09/20 08:15 AMB (Rec: 04/09/20 11:58 AMB [email or web address]) Therapeutic Exercises Supine Exercises 4 Supine Exercise Name single leg bridge Reps/Minutes 2x10 fall out Supine Exercise Name DL Side bilateral Equipment Used TB #1 loop Reps/Minutes x10 Comments good slow pacing & TA/ PF engagement Other Exercises 5 Other Exercise Name ball exercise Reps/Minutes 10 Comments shoulder flexion with chest on ball 3 Other Exercise Name lower trunk rotation 2 Other Exercise Name binu pose with side stretch Reps/Minutes 30x4 1 Other Exercise Name bird dog Reps/Minutes x5 R and L Comments cued neutral LS, level pelvis- added 2# PT-OP-T Assessment and Plan Start: 02/12/20 10:28 Freq: Status: Active Protocol: Document 04/09/20 08:15 AMB (Rec: 04/09/20 11:58 AMB [email or web address]) Physical Therapy Assessment Assessment Summary Assessment Darleen is doing better this week, talked about changing to every other week so that she can work on her HEP. Physical Therapy Plan Next Visit Focus/Plan Next Note Type Treatment Note Next Visit Plan Continue core/pelvic floor stability training with continued education on lifting /body mechanics.
--- NOTE | 2020-04-22 16:15 | PT.OPPOC ---
Physical, Occupational & Speech Therapy At [facility] Current Diagnoses Disorder of muscle, unspecified (04/22/20) Uterovaginal prolapse, unspecified (04/22/20) Unspecified urinary incontinence (04/22/20) Visit Care Team Role Provider Type Nora Seymour MD Primary Care Provider Physician Specialty: Family Practice Address: [address] [place] [address], [place], [address] Email: [email or web address] Marla Bill MD Attending Provider Physician Family Provider Referring Provider Specialty: MEDICINE TECH Address: [address] [place] [address], [id number] Email: 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 NOT MET STG Duration 5 weeks [facility]ci Goal (LTG) Darleen will lift 20# from floor to waist height while maintaining a pelvic floor contraction. MET LTG Duration 10 weeks One Impairment Back pain Short Term Goal (STG) Darleen will be independent with a HEP to strengthen her pelvic floor and core. MET STG Duration 5 weeks [facility] Goal (LTG) Darleen will transfer her son with good body mechanics and pain of 2/10 or less. Progress made average 2-3/10 LTG Duration 10 weeks Assessment Summary Assessment Sciatica is about the same, feels like it is not getting better when sleeping, pain flares when bending over and lifting continues to flare up pain. Pt concerned about recent brain MRI results, so we might pause physical therapy to retain the number of visits we can get, but she would like to discuss with her PCP first. Pelvic floor and deep TA continue to be weak, but pt is becoming more independent with stretching and strengthening program. Physical Therapy Plan Frequency and Duration Frequency of Treatment 1x/Week Duration of Treatment 6 weeks Plan of Care Start Date 04/22/20 Plan of Care End Date 06/03/20 Therapeutic Interventions Therapeutic Interventions Home Exercise Program,Manual Therapy,Neuromuscular Re- education,Self-Care/Home Management,Therapeutic Activities,Therapeutic Exercises Modalities Biofeedback,Cold Pack/Ice Massage,Electric Stimulation, Hot Packs Plan of Care Dates Plan of Care Start Date 04/22/20 Plan of Care End Date 06/03/20 Electronically Signed by: Rhonda Gandara, PT 04/25/20 2060 Please Sign and Return: I have reviewed this Plan of Care and certify that the skilled therapy services above are required to meet the patient?s needs. Physician Signature Date Printed Name and Credentials Clinical Instructor Signature Printed Name and Credentials
--- NOTE | 2020-04-22 16:15 | PT.OTN ---
Current Diagnoses Disorder of muscle, unspecified (04/22/20) Uterovaginal prolapse, unspecified (04/22/20) Unspecified urinary incontinence (04/22/20) Physical Therapy Treatment Note PT-OP-A Visit Information Start: 02/12/20 10:28 Freq: Status: Active Protocol: Document 04/22/20 08:15 AMB (Rec: 04/22/20 08:45 AMB [id number]) Out-Patient Physical Therapy Visit Information Visit Information Visit Type Progress Note Visit Start Time 08:15 Visit Stop Time 09:00 Total Visit Minutes 45 Visit Number 9 PT-OP-B Current Condition Start: 02/12/20 10:28 Freq: Status: Active Protocol: Document 02/12/20 10:30 AMB (Rec: 02/12/20 11:12 AMB [id number]) Current Condition History of Current Condition Onset Date 7 years ago Current Complaints sciatica, back pain, pelvic floor prolapse with lifting History of Current Condition 10/18/19: pt had surgery anterior and posterior repair with sacrospinous ligament fixation and TVT suburethral sling, the sacrospinous ligament suture pulled through and had to be removed, so pt now feels like bladder prolapse is back. She was fit with a pessary, but hasn't been using it a lot as she doesn't like the idea of it. She has had 8 live births with a forceps delivery with the 6th baby. Since then she has had sciatic and back pain, and prolapse. 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 Treatment Goals Patient/Caregiver Goals Reduce back pain/ be able to lift with less pain/prolapse Prior Functional Status Baseline Function- ADL's Modified Independent Baseline Function- Mobility Modified Independent Current Functional Impairments (Reported) Functional Limitations- ADL's Difficulty transferring her 70 # son who is in a wheelchair, difficulty lifting chicken feed bags, difficulty returing to exercise Personal Factors Other Personal Factors That May Effect hypothyroid Therapy/Recovery PT-OP-C Subjective Start: 02/12/20 10:28 Freq: Status: Active Protocol: Document 04/22/20 08:15 AMB (Rec: 04/22/20 08:45 AMB [id number]) OP-PT Subjective Patient Comments Patient Comments Pt states sx are about the same, she has recently had and brain MRI, sciatica on the right continues to be painful PT-OP-J Posture/Palpation/Skin Start: 02/12/20 13:16 Freq: Status: Active Protocol: Document 02/12/20 10:30 AMB (Rec: 02/12/20 16:02 AMB [email or web address]) Posture Evaluation Comments Posture Comments L ASIS and medial malleolus are high , 3 finger width seperation above umbilicus for diastasis recti Palpation Assessment Location One Palpation Details L QL tightness PT-OP-K Range of Motion Start: 02/12/20 13:16 Freq: Status: Active Protocol: Document 04/22/20 08:15 AMB (Rec: 04/22/20 08:31 AMB [id number]) Lumbar Spine Range of Motion Lumbar Spine Active Degrees Comments pain starts at 32 degrees of lumbar flexion PT-OP-L Special Tests Start: 02/12/20 13:16 Freq: Status: Active Protocol: Document 02/12/20 10:30 AMB (Rec: 02/12/20 16:02 AMB [email or web address]) Special Tests Lumbar Spine Special Tests Straight Leg Raise Test Results pain with flexion and adduction PT-OP-Q Treatments Start: 02/12/20 10:28 Freq: Status: Active Protocol: Document 04/22/20 08:15 AMB (Rec: 04/25/20 16:13 AMB [email or web address]) Therapeutic Exercises Supine Exercises fall out Supine Exercise Name DL Side bilateral Equipment Used TB #1 loop Reps/Minutes x10 Comments good slow pacing & TA/ PF engagement 1 Supine Exercise Name sciatic n glide (discussed supine and showed seated) Comments edge into pain don't push past Sidelying Exercises 2 Sidelying Exercise Name QL stretch Reps/Minutes 30x3 Sitting Exercises TA sit <> stand Reps/Minutes 5 Comments straight back, hip hinge only to engage TA Other Exercises 2 Other Exercise Name binu pose with side stretch Reps/Minutes 30x4 1 Other Exercise Name bird dog Reps/Minutes x5 R and L Comments cued neutral LS, level pelvis- added 2# Manual Therapy Treatment Soft Tissue Mobilization 2 Body Location R piriformis Manual Techniques 1 Type straight leg distraction Comments R PT-OP-T Assessment and Plan Start: 02/12/20 10:28 Freq: Status: Active Protocol: Document 04/22/20 08:24 AMB (Rec: 04/22/20 08:29 AMB [id number]) Physical Therapy Assessment Goals Two Impairment Pelvic floor strength Short Term Goal (STG) 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 NOT MET STG Duration 5 weeks [facility] Goal (LTG) Darleen will lift 20# from floor to waist height while maintaining a pelvic floor contraction. MET LTG Duration 10 weeks One Impairment Back pain Short Term Goal (STG) Darleen will be independent with a HEP to strengthen her pelvic floor and core. 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 Progress made average 2-3/10 LTG Duration 10 weeks Assessment Summary Assessment Sciatica is about the same, feels like it is not getting better when sleeping, pain flares when bending over and lifting continues to flare up pain. Pt concerned about recent brain MRI results, so we might pause physical therapy to retain the number of visits we can get, but she would like to discuss with her PCP first. Pelvic floor and deep TA continue to be weak, but pt is becoming more independent with stretching and strengthening program. Physical Therapy Plan Frequency and Duration Frequency of Treatment 1x/Week Duration of Treatment 6 weeks Plan of Care Start Date 04/22/20 Plan of Care End Date 06/03/20 Therapeutic Interventions Therapeutic Interventions Home Exercise Program,Manual Therapy,Neuromuscular Re- education,Self-Care/Home Management,Therapeutic Activities,Therapeutic Exercises Modalities Biofeedback,Cold Pack/Ice Massage,Electric Stimulation, Hot Packs
--- NOTE | 2020-05-06 16:16 | PT.OTN ---
Current Diagnoses Disorder of muscle, unspecified (05/06/20) Uterovaginal prolapse, unspecified (05/06/20) Unspecified urinary incontinence (05/06/20) Physical Therapy Treatment Note PT-OP-A Visit Information Start: 02/12/20 10:28 Freq: Status: Active Protocol: Document 05/06/20 08:25 AMB (Rec: 05/06/20 09:04 AMB [id number]) Out-Patient Physical Therapy Visit Information Visit Information Visit Type Treatment Note Visit Start Time 08:25 Visit Stop Time 09:00 Total Visit Minutes 35 Visit Number 10 PT-OP-B Current Condition Start: 02/12/20 10:28 Freq: Status: Active Protocol: Document 02/12/20 10:30 AMB (Rec: 02/12/20 11:12 AMB [id number]) Current Condition History of Current Condition Onset Date 7 years ago Current Complaints sciatica, back pain, pelvic floor prolapse with lifting History of Current Condition 10/18/19: pt had surgery anterior and posterior repair with sacrospinous ligament fixation and TVT suburethral sling, the sacrospinous ligament suture pulled through and had to be removed, so pt now feels like bladder prolapse is back. She was fit with a pessary, but hasn't been using it a lot as she doesn't like the idea of it. She has had 8 live births with a forceps delivery with the 6th baby. Since then she has had sciatic and back pain, and prolapse. 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 Treatment Goals Patient/Caregiver Goals Reduce back pain/ be able to lift with less pain/prolapse Prior Functional Status Baseline Function- ADL's Modified Independent Baseline Function- Mobility Modified Independent Current Functional Impairments (Reported) Functional Limitations- ADL's Difficulty transferring her 70 # son who is in a wheelchair, difficulty lifting chicken feed bags, difficulty returing to exercise Personal Factors Other Personal Factors That May Effect hypothyroid Therapy/Recovery PT-OP-C Subjective Start: 02/12/20 10:28 Freq: Status: Active Protocol: Document 05/06/20 08:15 AMB (Rec: 05/06/20 16:16 AMB [email or web address]) OP-PT Subjective Patient Comments Patient Comments Pt arrived 12 minutes late to apt, getting work up for Chiari still PT-OP-J Posture/Palpation/Skin Start: 02/12/20 13:16 Freq: Status: Active Protocol: Document 02/12/20 10:30 AMB (Rec: 02/12/20 16:02 AMB [email or web address]) Posture Evaluation Comments Posture Comments L ASIS and medial malleolus are high , 3 finger width seperation above umbilicus for diastasis recti Palpation Assessment Location One Palpation Details L QL tightness PT-OP-K Range of Motion Start: 02/12/20 13:16 Freq: Status: Active Protocol: Document 04/22/20 08:15 AMB (Rec: 04/22/20 08:31 AMB [id number]) Lumbar Spine Range of Motion Lumbar Spine Active Degrees Comments pain starts at 32 degrees of lumbar flexion PT-OP-L Special Tests Start: 02/12/20 13:16 Freq: Status: Active Protocol: Document 02/12/20 10:30 AMB (Rec: 02/12/20 16:02 AMB [email or web address]) Special Tests Lumbar Spine Special Tests Straight Leg Raise Test Results pain with flexion and adduction PT-OP-Q Treatments Start: 02/12/20 10:28 Freq: Status: Active Protocol: Document 05/06/20 08:15 AMB (Rec: 05/06/20 16:15 AMB [email or web address]) Therapeutic Exercises Supine Exercises 4 Supine Exercise Name NMES Reps/Minutes 15 min Comments over rectus abdominus, isometrics, breathing Manual Therapy Treatment Soft Tissue Mobilization 1 Body Location Bilat QL Mobilization Type Myofascial Release,Trigger Point Release Intensity/Depth Moderate Body Position Sidelying PT-OP-T Assessment and Plan Start: 02/12/20 10:28 Freq: Status: Active Protocol: Document 05/06/20 08:15 AMB (Rec: 05/06/20 16:15 AMB [email or web address]) Physical Therapy Assessment Assessment Summary Assessment Pt continues to have pain, is thinking about how much diastasis recti vs prolapse is affecting sciatica, continues to try to progress but lower abdominals continue to be difficult. NMES seemed somewhat helfpul. Reminded about theracane for QL. Physical Therapy Plan Next Visit Focus/Plan Next Note Type Treatment Note Next Visit Plan See if pt wants to continue with NMES, consider d/c in next few visits as pt feels she may be plateauing
--- NOTE | 2020-05-20 15:54 | PT.OTN ---
Current Diagnoses Disorder of muscle, unspecified (05/20/20) Uterovaginal prolapse, unspecified (05/20/20) Unspecified urinary incontinence (05/20/20) Physical Therapy Treatment Note PT-OP-A Visit Information Start: 02/12/20 10:28 Freq: Status: Active Protocol: Document 05/20/20 08:15 AMB (Rec: 05/20/20 09:00 AMB [id number]) Out-Patient Physical Therapy Visit Information Visit Information Visit Type Treatment Note Visit Start Time 08:15 Visit Stop Time 09:00 Total Visit Minutes 45 Visit Number 11 PT-OP-B Current Condition Start: 02/12/20 10:28 Freq: Status: Active Protocol: Document 02/12/20 10:30 AMB (Rec: 02/12/20 11:12 AMB [id number]) Current Condition History of Current Condition Onset Date 7 years ago Current Complaints sciatica, back pain, pelvic floor prolapse with lifting History of Current Condition 10/18/19: pt had surgery anterior and posterior repair with sacrospinous ligament fixation and TVT suburethral sling, the sacrospinous ligament suture pulled through and had to be removed, so pt now feels like bladder prolapse is back. She was fit with a pessary, but hasn't been using it a lot as she doesn't like the idea of it. She has had 8 live births with a forceps delivery with the 6th baby. Since then she has had sciatic and back pain, and prolapse. 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 Treatment Goals Patient/Caregiver Goals Reduce back pain/ be able to lift with less pain/prolapse Prior Functional Status Baseline Function- ADL's Modified Independent Baseline Function- Mobility Modified Independent Current Functional Impairments (Reported) Functional Limitations- ADL's Difficulty transferring her 70 # son who is in a wheelchair, difficulty lifting chicken feed bags, difficulty returing to exercise Personal Factors Other Personal Factors That May Effect hypothyroid Therapy/Recovery PT-OP-C Subjective Start: 02/12/20 10:28 Freq: Status: Active Protocol: Document 05/20/20 08:15 AMB (Rec: 05/20/20 09:00 AMB [id number]) OP-PT Subjective Patient Comments Patient Comments 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 PT-OP-J Posture/Palpation/Skin Start: 02/12/20 13:16 Freq: Status: Active Protocol: Document 02/12/20 10:30 AMB (Rec: 02/12/20 16:02 AMB [email or web address]) Posture Evaluation Comments Posture Comments L ASIS and medial malleolus are high , 3 finger width seperation above umbilicus for diastasis recti Palpation Assessment Location One Palpation Details L QL tightness PT-OP-K Range of Motion Start: 02/12/20 13:16 Freq: Status: Active Protocol: Document 04/22/20 08:15 AMB (Rec: 04/22/20 08:31 AMB [id number]) Lumbar Spine Range of Motion Lumbar Spine Active Degrees Comments pain starts at 32 degrees of lumbar flexion PT-OP-L Special Tests Start: 02/12/20 13:16 Freq: Status: Active Protocol: Document 02/12/20 10:30 AMB (Rec: 02/12/20 16:02 AMB [email or web address]) Special Tests Lumbar Spine Special Tests Straight Leg Raise Test Results pain with flexion and adduction PT-OP-Q Treatments Start: 02/12/20 10:28 Freq: Status: Active Protocol: Document 05/20/20 08:15 AMB (Rec: 05/20/20 15:54 AMB [email or web address]) Therapeutic Exercises Supine Exercises 4 Supine Exercise Name NMES Reps/Minutes 15 min Comments over rectus abdominus, isometrics, breathing 1 Supine Exercise Name sciatic n glide (discussed supine and showed seated) Comments edge into pain don't push past Sidelying Exercises 2 Sidelying Exercise Name QL stretch Reps/Minutes 30x3 Manual Therapy Treatment Soft Tissue Mobilization 2 Body Location R piriformis PT-OP-T Assessment and Plan Start: 02/12/20 10:28 Freq: Status: Active Protocol: Document 05/20/20 08:15 AMB (Rec: 05/20/20 15:54 AMB [email or web address]) Physical Therapy Assessment Assessment Summary Assessment Pt considering NMES unit and SI belt. Will need referral for SI Belt if she wants that. Pt continues to have difficulty engaging abdominals , but is continuing to work on it. Physical Therapy Plan Next Visit Focus/Plan Next Visit Plan Consider d/c if pt feels she is at a point where she can manage
--- NOTE | 2020-06-03 09:12 | PT.OTN ---
Current Diagnoses Disorder of muscle, unspecified (06/03/20) Uterovaginal prolapse, unspecified (06/03/20) Unspecified urinary incontinence (06/03/20) Physical Therapy Treatment Note PT-OP-A Visit Information Start: 02/12/20 10:28 Freq: Status: Active Protocol: Document 06/03/20 08:15 AMB (Rec: 06/03/20 09:00 AMB [id number]) Out-Patient Physical Therapy Visit Information Visit Information Visit Type Discharge Summary Visit Start Time 08:15 Visit Stop Time 09:00 Total Visit Minutes 45 Visit Number 12 PT-OP-B Current Condition Start: 02/12/20 10:28 Freq: Status: Active Protocol: Document 02/12/20 10:30 AMB (Rec: 02/12/20 11:12 AMB [id number]) Current Condition History of Current Condition Onset Date 7 years ago Current Complaints sciatica, back pain, pelvic floor prolapse with lifting History of Current Condition 10/18/19: pt had surgery anterior and posterior repair with sacrospinous ligament fixation and TVT suburethral sling, the sacrospinous ligament suture pulled through and had to be removed, so pt now feels like bladder prolapse is back. She was fit with a pessary, but hasn't been using it a lot as she doesn't like the idea of it. She has had 8 live births with a forceps delivery with the 6th baby. Since then she has had sciatic and back pain, and prolapse. 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 Treatment Goals Patient/Caregiver Goals Reduce back pain/ be able to lift with less pain/prolapse Prior Functional Status Baseline Function- ADL's Modified Independent Baseline Function- Mobility Modified Independent Current Functional Impairments (Reported) Functional Limitations- ADL's Difficulty transferring her 70 # son who is in a wheelchair, difficulty lifting chicken feed bags, difficulty returing to exercise Personal Factors Other Personal Factors That May Effect hypothyroid Therapy/Recovery PT-OP-C Subjective Start: 02/12/20 10:28 Freq: Status: Active Protocol: Document 06/03/20 08:15 AMB (Rec: 06/03/20 09:07 AMB [email or web address]) OP-PT Subjective Patient Comments Patient Comments Pt is ready to be discharged, she is going to be following up with multiple doctors regarding her medical conditions. PT-OP-J Posture/Palpation/Skin Start: 02/12/20 13:16 Freq: Status: Active Protocol: Document 02/12/20 10:30 AMB (Rec: 02/12/20 16:02 AMB [email or web address]) Posture Evaluation Comments Posture Comments L ASIS and medial malleolus are high , 3 finger width seperation above umbilicus for diastasis recti Palpation Assessment Location One Palpation Details L QL tightness PT-OP-K Range of Motion Start: 02/12/20 13:16 Freq: Status: Active Protocol: Document 04/22/20 08:15 AMB (Rec: 04/22/20 08:31 AMB [id number]) Lumbar Spine Range of Motion Lumbar Spine Active Degrees Comments pain starts at 32 degrees of lumbar flexion PT-OP-L Special Tests Start: 02/12/20 13:16 Freq: Status: Active Protocol: Document 02/12/20 10:30 AMB (Rec: 02/12/20 16:02 AMB [email or web address]) Special Tests Lumbar Spine Special Tests Straight Leg Raise Test Results pain with flexion and adduction PT-OP-Q Treatments Start: 02/12/20 10:28 Freq: Status: Active Protocol: Document 06/03/20 08:15 AMB (Rec: 06/03/20 09:07 AMB [email or web address]) Therapeutic Exercises Supine Exercises fall out Supine Exercise Name DL Side bilateral Equipment Used TB #1 loop Reps/Minutes x10 Comments good slow pacing & TA/ PF engagement 3 Supine Exercise Name table top Reps/Minutes 2 min Comments challenging 2 Supine Exercise Name SLR with TA and pelvic floor Reps/Minutes 2x10 Sidelying Exercises 2 Sidelying Exercise Name QL stretch Reps/Minutes 30x3 Other Exercises 3 Other Exercise Name lower trunk rotation 2 Other Exercise Name binu pose with side stretch Reps/Minutes 30x4 1 Other Exercise Name bird dog Reps/Minutes x5 R and L Comments cued neutral LS, level pelvis- added 2# Manual Therapy Treatment Soft Tissue Mobilization 1 Body Location Bilat QL Mobilization Type Myofascial Release,Trigger Point Release Intensity/Depth Moderate Body Position Sidelying PT-OP-T Assessment and Plan Start: 02/12/20 10:28 Freq: Status: Active Protocol: Document 06/03/20 08:22 [email or web address] (Rec: 06/03/20 08:52 AMB [id number]) Physical Therapy Assessment Goals Two Impairment Pelvic floor strength Short Term Goal (STG) 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 NOT MET STG Duration NOT MET Fdc Goal (LTG) Darleen will lift 20# from floor to waist height while maintaining a pelvic floor contraction. MET LTG Duration MET One Impairment Back pain Short Term Goal (STG) Darleen will be independent with a HEP to strengthen her pelvic floor and core. MET STG Duration MET Fdc Goal (LTG) Darleen will transfer her son with good body mechanics and pain of 2/10 or less. Progress made average 2-3/10 LTG Duration MET Assessment Summary Assessment Darleen is managing her symptoms at this point, but continues to have prolapse sx, diastasis recti. 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 She is independent with an exercise program for her pelvic floor and abdominal weakness. She will follow up as needed after further medical workup. Physical Therapy Plan Discharge Physical Therapy Discharge Reasons Goals Met
== END 2020-06-03 09:25 | disposition home or self-care (01) ==
LOC: PHYS 08:15
PROVIDERS: Family Provider Specialist; PCP Family Medicine; Referring Provider Specialist; Visit Provider Specialist
DX: N81.4 Uterovaginal prolapse, unspecified (principal); R32 Unspecified urinary incontinence; M62.9 Disorder of muscle, unspecified
CPT/HCPCS: 97110; 97140; 97162

== ENCOUNTER → 2020-07-17 08:47 | Outpatient (CLI) | payer OTHER, MEDICAID, SELFPAY ==
[2019-10-18 18:01] VITALS: BMI 21.2
--- NOTE | 2020-07-17 08:48 | DI.MG.S_ITS ---
UNILATERAL RIGHT DIGITAL DIAGNOSTIC MAMMOGRAM 3D/2D SHORT-TERM FOLLOW-UP: 07/17/2020 CLINICAL: Short term follow up of the right breast. Comparison is made to exams dated: 01/28/2020 mammogram, 01/02/2020 mammogram, and 01/22/2011 mammogram - [facility]. The tissue of right breast is heterogeneously dense. This may lower the sensitivity of mammography. There are diffuse punctate round calcifications in the right breast at 11 o'clock middle depth. These are not significantly changed. No other significant masses or calcifications are seen in the breast. IMPRESSION: PROBABLY BENIGN The diffuse punctate round calcifications in the right breast are probably benign. A follow-up mammogram in 6 months is recommended to demonstrate stability. This exam was interpreted at Station ID: [id number]. NOTE: For mammograms, a report in lay terms will be sent to the patient. Approximately 15% of breast malignancies will not be visualized mammographically. In the management of a palpable breast mass, a negative mammogram must not discourage biopsy of a clinically suspicious lesion. Electronically Signed By: Momo anderson/liliana:07/17/2020 09:20:59 copy to: MARIA DOLORES AYALA letter sent: Followup Recommended ACR BI-RADS Category 3: Probably benign [id number]
== END ==
PROVIDERS: Family Provider Specialist; PCP Family Medicine; Referring Provider Family Medicine; Visit Provider Family Medicine
DX: R92.8 Other abnormal and inconclusive findings on diagnostic imaging of breast (principal); R92.1 Mammographic calcification found on diagnostic imaging of breast
CPT/HCPCS: 76642; 77065; G0279

== ENCOUNTER → 2020-10-03 13:15 | Outpatient (CLI) | payer OTHER, MEDICAID, SELFPAY ==
[2019-10-18 18:01] VITALS: BMI 21.2
[2020-10-03 14:11] LABS: COVID19 -Nasal RAPID POSITIVE (Negative)
== END ==
PROVIDERS: Family Provider Specialist; PCP Family Medicine; Visit Provider Physician Assistant
DX: U07.1 COVID-19 (principal)
CPT/HCPCS: 87635

== ENCOUNTER → 2020-11-24 07:59 | Outpatient (CLI) | payer OTHER, MEDICAID, SELFPAY ==
[2019-10-18 18:01] VITALS: BMI 21.2
[2020-11-24 18:50] LABS: COVID19 -Nasal RAPID Negative (Negative)
== END ==
PROVIDERS: Family Provider Specialist; PCP Family Medicine; Visit Provider Obstetrics & Gynecology
DX: Z20.822 Contact with and (suspected) exposure to COVID-19 (principal); Z01.812 Encounter for preprocedural laboratory examination
CPT/HCPCS: 87635; C9803

== ENCOUNTER 2020-11-25 12:14 | Day surgery (SDC) | payer OTHER, MEDICAID, SELFPAY ==
[2019-10-18 18:01] VITALS: BMI 21.2
[2020-11-18 13:00] VITALS: BMI 21.4
[2020-11-25] VITALS (11 sets, daily range): BP systolic 101–130; BP diastolic 49–78; PULSE 51–78; RESP 13–18; TEMP 36.2–37.6; O2SAT 99–100; BMI 21.4
--- NOTE | 2020-11-25 | PATH_ITS ---
[facility] Accession Number: [id number] . 01 Material submitted: . uterus - UTERUS AND BILATERAL FALLOPIAN TUBES . 02 Diagnosis: Uterus and Bilateral Fallopian Tubes, Laparoscopic Hysterectomy with Bilateral Salingectomy (weight 91 grams): Cervix with no significant histomorphologic abnormality (prolapse by clinical history). Endocervix with no significant histomorphologic abnormality. Secretory endometrium; negative for glandular hyperplasia, cytologic atypia, or malignancy. Myometrium with no significant histomorphologic abnormality. Uterine serosa with no significant histomorphologic abnormality. Two disrupted portions of fallopian tube with benign paratubal cysts (1-3 mm); negative for atypia or malignancy. [facility] 11/27/2020 1431 Local . 02 Electronically signed: . Lesli Kimball MD, Pathologist NPI- [id number] . 01 Gross description: . The specimen is received in formalin, labeled uterus and bilateral fallopian tubes and consists of a 91-gram uterus and cervix measuring 8.0 cm from superior fundus to cervix by 6.1 cm from cornu to cornu by 3.8 cm from anterior to posterior. The serosa is malave-pink and smooth. The malave-pink wrinkled ectocervix measures 3.3 x 3.2 cm and there is a 1.0 x 0.2 cm os. The specimen is bivalved to reveal a malave-pink herringbone endocervical mucosa. The endometrial cavity measures 3.5 x 2.0 cm and displays a malave-pink glistening endometrium measuring 0.2 cm in thickness. The myometrium is malave-pink and trabeculated, measuring 1.5 cm in thickness. Also received are two detached disrupted fallopian tubes measuring 2.4 cm in length by 0.7 cm in diameter and 4.5 cm in length by 0.9 cm in diameter. The serosa is malave-pink and ragged with multiple paratubal cysts ranging from 0.1-0.3 cm. Sectioning reveals a malave mucosa and a stellate lumen measuring 0.2 cm in diameter. Stogy Maker sections are submitted. . A1: Anterior cervix. A2: Posterior cervix. A3: Anterior uterus, full thickness section. A4-A5: Posterior uterus, full thickness section. A6-A7: Fallopian tubes, business center representative cross sections and bisected fimbria. (EA:[id number]) /MRV 11/26/2020 [facility]0 Local . 02 Pathologist provided ICD-10: N81.4 . 02 CPT . 944435 Performed at: 01 [facility] [address] [id number] MD Ashutosh Hanson MD Phone: [phone] Performed at: 02 [facility] [address] [place] [id number] MD Raqule Mascorro MD Phone: [phone]
--- NOTE | 2020-11-25 12:36 | PM.GYNHP.1 ---
History of Present Illness History of Present Illness Reason for admission: pelvic prolapse Narrative: Darleen is a 44-year-old A2, LMP 2 weeks ago who has a long history of uterovaginal prolapse following her 6th vaginal which was performed with the use of forceps.? She experiences prolapse of the cervix down to near the introitus and prior attempt at correction via bilateral sacrospinous ligament fixation and anterior repair with TVT placement in September 2019. at the same time she underwent laparoscopic bilateral salpingectomy.? Unfortunately within 2-3 weeks following that surgery the prolapse returned.? Since then she has been using a pessary but is not satisfied with its use and the quality of life it affords. ? of note, the patient's mother has also experienced significant prolapse and has undergone for procedures, to which she utilize mesh. ? As a result the patient has a strong suspicion that her connective tissue is at least in part responsible for her prolapse.? After consideration of all options, the patient has decided to proceed with a total laparoscopic hysterectomy with plans for high uterus sacral ligament vaginal apex suspension.? She presents today for her scheduled surgery. [facility] Medical History Cystocele with uterine descensus Ki-Danlos disease Hypothyroid Sleep apnea Uterovaginal prolapse, incomplete Surgical History History of bilateral tubal ligation (10/18/19) Status post dilation and curettage (06/30/15) Social History household members: spouse and children Smoking Status: Never smoker alcohol intake: current Meds Home Medications and Allergies Home Medications Medication Instructions Recorded Confirmed Type levothyroxine 50 mcg capsule 50 mcg PO DAILY 10/15/19 11/18/20 History valacyclovir 500 mg tablet 500 mg PO DAILY #30 tab 09/10/20 11/18/20 Rx Allergies Allergy/AdvReac Type Severity Reaction Status Date / Time No Known Drug Allergies Allergy Verified 10/31/20 11:12 Review of Systems Review of Systems Narrative: Problem-specific ROS positives included in HPI Exam Const General: cooperative, healthy appearing and comfortable Nutritional Appearance: average body habitus Orientation: alert, awake and oriented x3 HENMT Head: normocephalic and atraumatic Ears: hearing grossly normal bilaterally Nose: external nose normal Face and sinus: face symmetric Mouth: oral mucosae normal Teeth and gingiva: dentition normal Throat: posterior oropharynx normal Eyes Eyelids: eyelids normal Conjunctivae: conjunctivae normal Sclera: sclerae normal Cornea: corneas normal EOM: EOM intact bilaterally Neck Neck: full ROM and trachea midline Thyroid: thyroid normal Lymphatic: No lymphadenopathy Resp Effort & Inspection: normal respiratory effort and able to speak in complete sentences Auscultation: clear to auscultation bilaterally Cardio Rate: regular rate Rhythm: regular rhythm Heart Sounds: S1 normal, S2 normal and no murmurs GI Inspection: normal to inspection Palpation: soft, no hepatosplenomegaly and No tender External Female Exam: normal external appearance Speculum Exam - Vagina: normal appearance of the vagina, normal vaginal discharge and no lesions Speculum Exam - Cervix: normal appearance of the cervix, cervical os open, nontender and other (Second-degree uterovaginal prolapse) Bimanual Exam- Vagina & Uterus: normal bimanual exam, uterine size normal, uterine mobility normal, uterine shape normal, No tender and non-tender Bimanual Exam- Adnexa, other: normal adnexae, no masses, No normal, No rectocele, No enterocele, cystocele (1st degree) and vaginal apex descent OB/External & Speculum: cervical os open Extrem General: No calf tenderness Psych Appearance: grossly normal Speech and Movement: speech and movement normal Mood: congruent mood Affect: normal affect Attitude: cooperative Thought Process: normal Thought Content: normal Judgment: judgment good Assessment & Plan Assessment and plan (1) Uterovaginal prolapse, incomplete: Status: Acute (2) Cystocele with uterine descensus: Status: Acute Plan: Patient counseled at length regarding alternatives, risks, benefits, and potential complications associated with? total laparoscopic hysterectomy with high uterus sacral vault suspension.? Given her family history and her Ki-Danlos syndrome the prospect for potential failure is significant and she recognizes that fact.? That said, she does wish to proceed rather than moving to sacral colpopexy with mesh due to the difficulties that her mother as experienced.? Complications of the procedure included but were not limited to bleeding, infection, and damage to organs surrounding the operative site and within the abdominal cavity.? With full understanding of the above a written consent was executed, signed and witnessed 10/31/2020. Time Spent With Patient Critical Care time: I spent a total of [] minutes of critical care time on this patient's care today; this time is exclusive of procedural time.
[2020-11-25] MEDS: LACTATED RINGERS 1,000 ML 100 ML IV ×3 (13:15→17:59)
--- NOTE | 2020-11-25 13:16 | PM.PREOP ---
Pre-operative Note COVID-19 COVID-19 status: Negative Result date/Date tested (Pos, Neg/Pending): 11/24/20 Interval Note History & Physical reviewed/Exam performed by Physician: Yes Changes to H&P: No
[2020-11-25] MEDS: CEFAZOLIN 1 GM VIAL 2 GM IV (14:08)
--- NOTE | 2020-11-25 14:27 | SUR.OPER ---
Lithotomy on padded OR bed. [place] Pad Positioner under torso. Head on pillow, arms padded and tucked at sides. Legs secured in padded yellow fins stirrups.
[2020-11-25] MEDS: BUPIVACAINE 0.5% (PF) VIAL 30 ML INJ (14:53)
[2020-11-25] MEDS: ROPIVACAINE 0.2% PF 2 MG/ML 10ML AMP 20 ML INJ (16:46)
--- NOTE | 2020-11-25 17:24 | P.OP_ITS ---
Operative Date/Time/Diagnoses Date of procedure: 11/25/20 Time of procedure: 14:25 Pre-op diagnosis: Uterovaginal prolapse, incomplete, with cystocele Post-op diagnosis: same Procedure & Clinicians Procedure: Procedures Operation Date: 11/25/20 13:30 Actual Procedure Side Surgeon p Laparoscopic Hysterectomy with Bilateral Salpingectomy, uterosacral vault susp ension Neftali Francis MD Indications: Darleen is a 44-year-old A2, LMP 2 weeks ago who has a long history of uterovaginal prolapse following her 6th vaginal which was performed with the use of forceps.? She experiences prolapse of the cervix down to near the introitus and prior attempt at correction via bilateral sacrospinous ligament fixation and anterior repair with TVT placement in September 2019. at the same time she underwent laparoscopic bilateral salpingectomy.? Unfortunately within 2-3 weeks following that surgery the prolapse returned.? Since then she has been using a pessary but is not satisfied with its use and the quality of life it affords. ? of note, the patient's mother has also experienced significant prolapse and has undergone for procedures, to which she utilize mesh. ? As a result the patient has a strong suspicion that her connective tissue is at least in part responsible for her prolapse.? After consideration of all options, the patient has decided to proceed with a total laparoscopic hysterectomy with plans for high uterus sacral ligament vaginal apex suspension.? She presents today for her scheduled surgery. Surgeon: Neftali Francis Cardiac Care Unit Nurse: Marla Bill Anesthesia Type: General Operative Notes Findings: The uterus is normal size, shape and consistency. The adnexa show changes consistent with prior tubal ligation. Posterior cul-de-sac shows no s ignificant peritoneal abnormalities. Both ovaries are normal. The uterosacral ligaments are markedly attenuated. The appendix and upper abdomen are normal in appearance laparoscopically. Both ureters were visualized throughout the procedure and demonstrated active peristalsis throughout. At the completion of the suspension, neither ureter was kinked, or close to the suspension sutures. Closure Type: primary Specimen(s): left tube, right tube and uterus Estimated blood loss (mL): 100 Blood products transfused: none Procedure in detail: With the patient under satisfactory general endotracheal anesthesia in the modified dorsal lithotomy position, the abdomen, perineum, and vagina were prepped and draped in the usual fashion for TLH. A Kwan catheter was inserted in the bladder. A pre-surgical time-out was taken per [facility] Main OR protocol. A VCare uterine manipulator with large cup was then placed in the uterus in the usual fashion. The umbilicus was infiltrated with 0.5% Marcaine and a 1 cm transverse incision was made at the site of previous incision. Veress needle was used to insufflate the abdominal cavity with carbon dioxide. 5 mm scope was used to visualize the abdominal cavity and 2 more 5 mm ports were placed in the right and left mid quadrant after infiltration of the skin and subcutaneous tissues with 0.5% Marcaine. Using a 3 puncture technique the abdomen and pelvis were visualized with the findings as noted previously. Attention was turned to the left adnexa with the fallopian tube grasped and elevated so as to be able to coagulate and divide the fimbria varicose and mesosalpinx with the LigaSure device. The dissection was then carried over the round ligament on the left and down the lateral aspect of the uterus on the left. Once the level of the cervical cup had been reached, a bladder flap was created anteriorly and the peritoneum skeletonized posteriorly. Attention was then turned to the right side with the fallopian tube coagulated and from the fimbria of Maggie with the LigaSure device and the incision carried over the round ligament on the right and down the lateral aspect of the uterus to the level of the the cervical vaginal cup. A bladder flap was completed from the right side and the bladder advanced. The posterior perineum was then skeletonized and all vasculature to the uterine fundus had been coagulated and divided at that point. A monopolar hook cautery was used to excise the uterus at the cervical vaginal reflection as defined by the VCare cup. The uterus was then removed vaginally along with the VCare manipulator and the vaginal cuff was closed using 0 Vicryl interrupted vaginally. That point a 4th 5 mm port was placed deep in the right lower quadrant and using 0 Ethibond, the uterosacral ligaments were fixed to the vaginal cuff using 2 sutures on each side and elevating the vaginal cuff approximately 3.5 cm from its original position. The ureters were visualized throughout the course of the suspension and were seen to be well away from the fixation site. In addition they were actively peristalsing on both sides throughout the case. The pelvis was irrigated and carefully inspected. There was no areas of bleeding even with low pressure and at that point the pelvis was irrigated with a 20 cc solution containing ropivacaine. At that point the pneumoperitoneum was vented and the port incisions closed with 4-0 Monocryl using inverted interrupted sutures. Appropriate dressings were applied and the patient was awakened having tolerated the procedure well. She was then transferred to the PACU for a period of observation and recovery. Complications: none Post-operative Condition: stable Disposition: PACU Plan for aftercare: Routine postop care.
[2020-11-25] MEDS: ONDANSETRON 4 MG/2 ML INJ IV (18:50)
--- NOTE | 2020-11-25 19:49 | PC.NURSE ---
pt got nauseous after sips of water and a spoon of pudding, gave zofran IV. No nausea now and drinking broth.
[2020-11-25] MEDS: ACETAMINOPHEN 325 MG TABLET 650 MG PO (21:06)
[2020-11-26] VITALS: BP 109/54; PULSE 69; RESP 18; TEMP 37.2; O2SAT 99
[2020-11-26] MEDS: ACETAMINOPHEN 325 MG TABLET 650 MG PO ×3 (02:43→14:04)
[2020-11-26] MEDS: LACTATED RINGERS 1,000 ML 100 ML IV (03:58)
[2020-11-26 04:00] VITALS: BP 97/48; PULSE 60; RESP 18; TEMP 37.2; O2SAT 98
[2020-11-26 05:03] LABS: Add Manual Diff / Slide Review NO; Basophils Absolute Auto 100 /uL (0-100); Basophils Percent Auto 0.4 % (0-2); Eosinophils Absolute Auto 0 /uL (0-450); Hematocrit 33.7 % (36-46); Hemoglobin 11.1 g/dL (12.0-16.0); Lymphocytes Absolute Auto 1300 /uL (1100-4500); Lymphocytes Percent Auto 10.2 % (25-40); Mean Corpuscular Hemoglobin 29.6 PG (26-34); Mean Corpuscular Volume 89.9 fL (80-100); Monocytes Absolute Auto 900 /uL (0-900); Monocytes Percent Auto 6.6 % (3-14); Neutrophils Absolute Auto 10900 /uL (1500-7000); Neutrophils Percent Auto 82.8 % (50-75); Platelet Count 206 X10^3/uL (150-400); Red Blood Cell Count 3.75 X10^6/uL (4.0-5.2); Red Cell Distribution Width 13.1 % (11.6-14.8); White Blood Cell Count 13.1 X10^3/uL (4.5-11.0)
[2020-11-26] MEDS: LEVOTHYROXINE 50 MCG TABLET PO (06:36)
[2020-11-26] MEDS: INFLUENZA VACCINE QIV 0.5 ML SYRINGE IM (08:42)
[2020-11-26 08:50] VITALS: BP 121/67; PULSE 58; RESP 18; TEMP 36.4; O2SAT 100
[2020-11-26 12:50] VITALS: BP 127/79; PULSE 64; RESP 18; TEMP 36.6; O2SAT 100
--- NOTE | 2020-11-26 13:57 | P.DS_ITS ---
History of Present Illness History of Present Illness Date Patient Seen: 11/26/20 Time Patient Seen: 13:10 Chief complaint: Uterovaginal prolapse, incomplete, w/ cystocele Narrative: Darleen is a 44-year-old A2, LMP 2 weeks ago who has a long history of uterovaginal prolapse following her 6th vaginal which was performed with the use of forceps.? She experiences prolapse of the cervix down to near the introitus and prior attempt at correction via bilateral sacrospinous ligament fixation and anterior repair with TVT placement in September 2019. at the same time she underwent laparoscopic bilateral salpingectomy.? Unfortunately within 2-3 weeks following that surgery the prolapse returned.? Since then she has been using a pessary but is not satisfied with its use and the quality of life it affords. ? of note, the patient's mother has also experienced significant prolapse and has undergone for procedures, to which she utilize mesh. ? As a result the patient has a strong suspicion that her connective tissue is at least in part responsible for her prolapse.? After consideration of all options, the patient has decided to proceed with a total laparoscopic hysterectomy with plans for high uterus sacral ligament vaginal apex suspension.? She was admitted 11/27/2020 for her scheduled surgery. Discharge Providers Provider Date of admission: 11/25/2020 Discharge Date: 11/26/20 Primary care physician: Nora Seymour MD Discharge provider: Neftali Francis MD Summary Hospital Course Discharge Diagnosis: Uterovaginal prolapse, incomplete Hospital Course: On the afternoon of 11/25/2020, the patient underwent an uneventful total laparoscopic hysterectomy with bilateral salpingectomy and high laparoscopic uterosacral ligament vault suspension. The details of the procedure well summarized on my operative note of 11/25/2020. Following surgery the patient has done extremely well with prompt return of bowel and bladder function, she is ambulating independently, tolerating a regular diet, and her pain is well managed with oral medications. Postsurgical hemoglobin and hematocrit were consistent with observed operative losses and the patient has remained afebrile and normotensive throughout her postoperative course. She will be discharged at this time to home after counseling regarding precautionary symptoms, limitations of activity, medications, and plans for follow-up. The patient will be seen in 2 weeks for follow-up and will be using [id number] Tylenol and/or ibuprofen for pain management. Status at Discharge Cognitive/behavioral status at discharge: oriented Functional status at discharge: independent ambulation Overall status at discharge: patient is progressing back to baseline Exam Vital Signs (past 8 hours): - 11/26/20 08:50 11/26/20 12:50 Temperature 97.6 F 97.8 F Pulse Rate 58 L 64 Respiratory Rate 18 18 Blood Pressure 121/67 127/79 Pulse Oximetry 100 100 Oxygen Delivery Method Room Air Oxygen Flow Rate 0 Const General: cooperative, healthy appearing and comfortable Nutritional Appearance: average body habitus Orientation: alert and oriented x3 HENMT Head: normocephalic and atraumatic Ears: hearing grossly normal bilaterally Eyes General: appearance normal, both eyes and all related structures Neck Neck: normal visual inspection Resp Effort & Inspection: normal respiratory effort and able to speak in complete sentences Auscultation: clear to auscultation bilaterally Cardio Rate: regular rate Rhythm: regular rhythm Heart Sounds: S1 normal, S2 normal and no murmurs GI Inspection: normal to inspection Palpation: soft, no hepatosplenomegaly and tender (Minimal, bilateral lower quadrant.) Auscultation: normal bowel sounds General: other (No significant bleeding) Psych Appearance: grossly normal Mental Status: mental status grossly normal Speech and Movement: speech and movement normal Mood: congruent mood Affect: normal affect Attitude: cooperative Thought Process: normal Thought Content: normal Judgment: judgment good Objective Labs Result Diagrams: 11/26/20 04:49 Labs: Laboratory Results - last 24 hr 11/26/20 04:49 WBC 13.1 H RBC 3.75 L Hgb 11.1 L Hct 33.7 L MCV 89.9 MCH 29.6 MCHC 33.0 RDW 13.1 Plt Count 206 Neut % (Auto) 82.8 H Lymph % (Auto) 10.2 L [place] % (Auto) 6.6 Eos % (Auto) 0.0 L Baso % (Auto) 0.4 Neut # (Auto) 72895 H Lymph # (Auto) 1300 [place] # (Auto) 900 Eos # (Auto) 0 Baso # (Auto) 100 PFSH Medical History Cystocele with uterine descensus Ki-Danlos disease Hypothyroid Sleep apnea Uterovaginal prolapse, incomplete Surgical History History of bilateral tubal ligation (10/18/19) Status post dilation and curettage (06/30/15) Social History household members: children Smoking Status: Never smoker alcohol intake: current Discharge Assessment & Plan Assessment and Plan Assessment: Status post TLH with bilateral salpingectomy and laparoscopic high uterosacral vault suspension. Plan of Treatment: Routine postoperative care with plans for postop check in 2 weeks. Discharge Plan Discharge Plan Patient Disposition: Home Provider Discharge Comment: Please review the written instructions you were provided at the time of discharge. Your follow-up appointment will be in 6 weeks and I look forward to seeing you then. If in the meanwhile however you have any questions or concerns, please do not hesitate to contact the office. Discharge orders & Medications Discharge Orders: Discharge (Order); Ordered 11/26/20 Ordered By: Neftali Francis Prescriptions: Continued levothyroxine 50 mcg capsule 50 mcg PO DAILY RF: 0 Follow up/Referrals: Nora Seymour MD [Primary Care Provider] - Diet/Activity/Treatments Diet: Diet as Tolerated Activity: As tolerated. Nothing vaginally and no intercourse until cleared by your physician. Skin/Wound/Dressing Care Report to your healthcare provider any signs of infection, such as:: chills, fever, increased pain, unusual drainage and unusual redness Dressing: Remove dressings a.m. 11/27/2020. Visit Report/Discharge Packet Instructions: DI for Stroke-Ischemic, DI for Hysterectomy, DI for Laparoscopy Stand Alone Forms: Surgery Discharge Print Language: [place]anian Discharge Data Primary Care Provider: Nora Seymour Attending Provider: Neftali Francis
--- NOTE | 2020-11-26 14:42 | PC.NURSE ---
Pt A&Ox3 reports pain well controlled with tylenol from 04/30 to 03/02. VSS, afebrile on RA. LS CTA, abdomen Soft, mildly tender +BS x4. Lap site dressing C/D/I, anne pad to vaginal area remains dry w/o s/sx of bleeding. Pt had Kwan dc'd this a.m. at 0600 a.m. MD at bedside this a.m. evaluating patient and explains that he will have have her stay for monitoring this a.m. and discharge after lunch providing that she is voiding and continuing to do well. Pt able to shower and voids. Tolerating general diet well. She is cleared for discharge this afternoon. She verbalizes understanding of all discharge instructions, including activity, mediations, and follow up instructions. no new prescriptions at this time.RETENTION MANAGER escorted patient with all of her belongings including electronics, and purse to private vehicle for discharge home with friend.
== END 2020-11-26 14:38 | disposition home or self-care (01) ==
LOC: OR 12:16 → AC 12:17
PROVIDERS: Family Provider Specialist; PCP Family Medicine; Referring Provider Obstetrics & Gynecology; Visit Provider Obstetrics & Gynecology
PROC: 0UT94ZZ Resection of Uterus, Percutaneous Endoscopic Approach (ICD-10-PCS; CPT 58571; principal; 2020-11-25 13:30)
DX: N81.2 Incomplete uterovaginal prolapse (principal); G47.30 Sleep apnea, unspecified; E03.9 Hypothyroidism, unspecified; Q79.60 Ehlers-Danlos syndrome, unspecified; Z23 Encounter for immunization; N83.8 Other noninflammatory disorders of ovary, fallopian tube and broad ligament
CPT/HCPCS: 58571; 57425; 36415; 85025; 90471; 90656; J0690; J1100; J1885; J2250; J2405; J2704; J2795; J3010; Q2038

== ENCOUNTER → 2021-04-21 12:48 | Outpatient (ROUT) | payer OTHER, MEDICAID, SELFPAY ==
[2020-11-25 18:00] VITALS: BMI 21.4
[2021-04-21 13:55] LABS: COVID-19 CEPHEID PCR (VTM/NP) Negative (Negative)
== END ==
PROVIDERS: Family Provider Specialist; PCP Family Medicine; Visit Provider Family Medicine
DX: Z20.822 Contact with and (suspected) exposure to COVID-19 (principal); Z11.52 Encounter for screening for COVID-19
CPT/HCPCS: U0003; U0005

== ENCOUNTER → 2021-05-25 12:42 | Outpatient (CLI) | payer OTHER, MEDICAID, SELFPAY ==
[2020-11-25 18:00] VITALS: BMI 21.4
--- NOTE | 2021-05-25 | DI.MG.S_ITS ---
BILATERAL DIGITAL DIAGNOSTIC MAMMOGRAM 3D/2D SHORT-TERM FOLLOW-UP: 05/25/2021 CLINICAL: Short term follow up of the right breast, due for bilateral imaging. Comparison is made to exams dated: 07/17/2020 mammogram, 01/28/2020 mammogram, 01/02/2020 mammogram, and 01/22/2011 mammogram - [facility]. The tissue of both breasts is heterogeneously dense. This may lower the sensitivity of mammography. There are diffuse punctate round calcifications in the right breast at 11 o'clock middle depth. These are not significantly changed. No other significant masses, calcifications, or other findings are seen in either breast. IMPRESSION: PROBABLY BENIGN The diffuse punctate round calcifications in the right breast are probably benign. A follow-up diagnostic mammogram in 12 months including right breast magnification views is recommended. This exam was interpreted at Station ID: [id number]. NOTE: For mammograms, a report in lay terms will be sent to the patient. Approximately 15% of breast malignancies will not be visualized mammographically. In the management of a palpable breast mass, a negative mammogram must not discourage biopsy of a clinically suspicious lesion. Electronically Signed By: Momo Louise M.D. ar/:05/25/2021 13:13:26 copy to: MARIA DOLORES YAALA letter sent: Followup Recommended ACR BI-RADS Category 3: Probably benign [id number]
== END ==
PROVIDERS: Family Provider Specialist; PCP Family Medicine; Referring Provider Family Medicine; Visit Provider Family Medicine
DX: R92.8 Other abnormal and inconclusive findings on diagnostic imaging of breast (principal); R92.1 Mammographic calcification found on diagnostic imaging of breast
CPT/HCPCS: 77066; G0279